=== PATIENT | female | born 1980 | race Caucasian/White ===

== ENCOUNTER 2020-04-07 07:34 | Outpatient (CLI) | payer OTHER, SELFPAY ==
--- NOTE | ~2020-04-07 | US_ITS ---
US abdomen complete EXAMINATION: US Abdomen Complete INDICATION: Trauma cytopenia PROCEDURE: Realtime High Resolution abdomen ultrasound. COMPARISON: No prior studies for comparison FINDINGS: Gallbladder within normal limits. No gallstones, pericholecystic fluid, gallbladder wall t hickening or biliary dilatation. Common bile duct measures 2.3 mm. Liver echotexture within normal limits without focal mass. Pancreas within normal limits. Pancreati c tail is obscured by bowel gas. Spleen is unremarkeable. Renal echotexture is within normal limits bilaterally without hydronephrosis, contour deforming mass or renal stone. Right kidney measures 10.8 cm. Left kidney measures 11.7 cm. Visualized aspects of the aorta and IVC are within normal limits. Portal vein is patent. No sonograph ic Carmichael's sign indicated by the technologist. IMPRESSION: 1: Normal abdominal ultrasound. Reviewed, dictated and finalized at location A.
== END 2020-04-07 07:35 | disposition home or self-care (01) ==
PROVIDERS: PCP Family Medicine; Visit Provider Internal Medicine Hematology & Oncology
DX: D69.59 Other secondary thrombocytopenia (principal)
CPT/HCPCS: 76700

== ENCOUNTER → 2022-11-20 16:29 | Outpatient (CLI) | payer OTHER, SELFPAY ==
--- NOTE | ~2022-11-20 | MM_ITS ---
EXAMINATION: MM screening anne BI w matilde HISTORY: Screening mammogram TECHNIQUE: Craniocaudal and mediolateral oblique 3-D tomosynthesis images were obtained and synthetic 2-D images were generated. CAD analysis was submitted and interpreted. COMPARISON: No prior mammogram is available for comparison at this institution. BREAST PARENCHYMAL COMPOSITION: There are scattered areas of fibroglandular density. FINDINGS: RIGHT BREAST: No suspicious mass, calcification, or architectural distortion are identified to sugges t malignancy. LEFT BREAST: An asymmetry is present in the anterior middle third of the breast in line with the nipp le axis on the mediolateral oblique view. IMPRESSION: 1. Left breast asymmetry which may represent the patient's baseline however no comparison is currentl y available. 2. Comparison with prior mammograms is necessary. BI-RADS Category 0: Incomplete: Needs comparison with prior mammograms. Reviewed, dictated and finalized at location A. IMPRESSION: 1. Left breast asymmetry which may represent the patient's baseline however no comparison is currently available. 2. Comparison with prior mammograms is necessary. BI-RADS Category 0: Incomplete: Needs comparison with prior mammograms.
== END ==
PROVIDERS: PCP Family Medicine; Visit Provider Family Medicine
DX: Z12.31 Encounter for screening mammogram for malignant neoplasm of breast (principal); R92.8 Other abnormal and inconclusive findings on diagnostic imaging of breast
CPT/HCPCS: 77063; 77067

== ENCOUNTER → 2023-01-01 09:18 | Outpatient (CLI) | payer OTHER, SELFPAY ==
--- NOTE | ~2023-01-01 | MMUS_ITS ---
EXAMINATION: MM diagnostic anne LT w matilde, US breast LT complete HISTORY: Left breast mammographic asymmetry reported in the anterior middle third of the breast in li ne with the nipple axis on mediolateral oblique view TECHNIQUE: Additional 3-D tomosynthesis images of the left breast were performed and synthetic 2-D im ages were generated. CAD analysis was submitted and interpreted. High resolution complete left breast ultrasound examination including all 4 quadrants and subareolar area was performed. COMPARISON: 11/20/2022 bilateral screening mammogram FINDINGS: MAMMOGRAPHIC FINDINGS: There is a circumscribed 6 mm opacity with 2 benign circular calcifications in the subareolar area of the left breast. No suspicious mass or shadowing, malignant calcification, skin thickening or retraction of the left b reast is evident. The asymmetry reported in the left MLO view of 11/20/2022 is consistent with composite shadowing of ov erlapping fibroglandular stroma, as there is no such finding on the ML view. The fibroglandular surinder a appears more spread out on the ML view. ULTRASOUND: Corresponding to the circumscribed mass with 2 benign-appearing calcifications on mammography is a pa rallel circumscribed hypoechoic solid mass measuring 3.2 x 7 x 7.3 mm, with 2 small echogenic foci c onsistent with the mammographically demonstrated calcifications. There is no internal vascularity or posterior shadowing. The mammographic and sonographic appearance is benign. No suspicious mass or shadowing is detected elsewhere in the left breast. IMPRESSION: 1. Benign finding 2. Routine mammographic screening is recommended BI-RADS Category 2: Benign finding(s). Reviewed, dictated and finalized at location A. IMPRESSION: 1. Benign finding 2. Routine mammographic screening is recommended BI-RADS Category 2: Benign finding(s).
== END ==
PROVIDERS: PCP Family Medicine; Visit Provider Family Medicine
DX: R92.8 Other abnormal and inconclusive findings on diagnostic imaging of breast (principal)
CPT/HCPCS: 76641; 77061; 77065; G0279

== ENCOUNTER 2023-05-05 07:44 | Day surgery (SDC) | payer OTHER, SELFPAY ==
[2023-05-04 11:03] VITALS: BMI 22.8
--- NOTE | 2023-05-05 06:49 | PM.HPGS ---
History of Present Illness History of Present Illness Consent: Risks, benefits, and alternatives have been discussed and questions answered. Patient agrees to proceed with procedure. 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 possibly a tube Review of Systems Review of Systems: All systems reviewed & are unremarkable except as noted in HPI and below Constitutional: Constitutional: Reports as per HPI ENT: Comments: serous otitis left ear PMFSH Past Medical History Medical History Anxiety Chronic serous otitis media of both ears Impacted cerumen of left ear Family History Family History Grandparent Heart disease Mother Thyroid disorder Social History Social History Social History: Caffeine-coffee Smoking status: Never smoker Alcohol intake: current Alcohol use details: wine Substance use: never Substance use type: does not use Lack of Transportation: No Lack of Food: Never True Current Housing: I Have Housing Concerned About Future Housing: No Difficulty Paying Gas/Electric Bills: No Difficulty Paying for Meds: No Currently Unemployed: No Education: High School Diploma/GED Difficulty w/ Childcare or Family Care: No Living arrangements: with family Occupation/Education: occupation 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 Gender identity (if verbalized by the patient): Female Spiritual care concerns: No Agree to blood products: Yes Meds Home Medications and Allergies Home Medications Medication Instructions Recorded Confirmed Type buspirone 10 mg tablet 10 mg PO BID 04/29/23 05/04/23 History cyclobenzaprine 5 mg tablet 5 mg PO TID PRN Breakthrough Pain, 04/29/23 05/04/23 History Moderate hydrocodone 5 mg-acetaminophen 325 1 tablet PO Q8H PRN Pain, Moderate 04/29/23 05/04/23 History mg tablet multivitamin 1 tablet PO DAILY 04/29/23 05/04/23 History biotin 1 tablet PO DAILY 05/04/23 05/04/23 History diclofenac sodium 75 mg 75 mg PO DAILY 05/04/23 05/04/23 History tablet,delayed release Allergies Allergy/AdvReac Type Severity Reaction Status Date / Time Sulfa (Sulfonamide Allergy Intermediate HIVES Verified 05/04/23 17:08 Antibiotics) metoclopramide Allergy Mild EPS Verified 05/04/23 17:08 Penicillins Allergy Mild HIVES Verified 05/04/23 17:08
--- NOTE | 2023-05-05 06:51 | PM.HPGS ---
History of Present Illness History of Present Illness Consent: Risks, benefits, and alternatives have been discussed and questions answered. Patient agrees to proceed with procedure. Chief complaint: Chronic Serous Otitis Media Narrative: Anna Spangler is a 43 year old female [facility] Past Medical History Medical History Anxiety Chronic serous otitis media of both ears Impacted cerumen of left ear Family History Family History Grandparent Heart disease Mother Thyroid disorder Social History Social History Social History: Caffeine-coffee Smoking status: Never smoker Alcohol intake: current Alcohol use details: wine Substance use: never Substance use type: does not use Lack of Transportation: No Lack of Food: Never True Current Housing: I Have Housing Concerned About Future Housing: No Difficulty Paying Gas/Electric Bills: No Difficulty Paying for Meds: No Currently Unemployed: No Education: High School Diploma/GED Difficulty w/ Childcare or Family Care: No Living arrangements: with family 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/Education: occupation 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 Gender identity (if verbalized by the patient): Female Spiritual care concerns: No Agree to blood products: Yes Comments serous otitis left ear possibly right Meds Home Medications and Allergies Home Medications Medication Instructions Recorded Confirmed Type buspirone 10 mg tablet 10 mg PO BID 04/29/23 05/04/23 History cyclobenzaprine 5 mg tablet 5 mg PO TID PRN Breakthrough Pain, 04/29/23 05/04/23 History Moderate hydrocodone 5 mg-acetaminophen 325 1 tablet PO Q8H PRN Pain, Moderate 04/29/23 05/04/23 History mg tablet multivitamin 1 tablet PO DAILY 04/29/23 05/04/23 History biotin 1 tablet PO DAILY 05/04/23 05/04/23 History diclofenac sodium 75 mg 75 mg PO DAILY 05/04/23 05/04/23 History tablet,delayed release Allergies Allergy/AdvReac Type Severity Reaction Status Date / Time Sulfa (Sulfonamide Allergy Intermediate HIVES Verified 05/04/23 17:08 Antibiotics) metoclopramide Allergy Mild EPS Verified 05/04/23 17:08 Penicillins Allergy Mild HIVES Verified 05/04/23 17:08 Exam Narrative: serous otitis left ear
--- NOTE | 2023-05-05 06:52 | WPDHPUPDATE1 ---
History and Physical Update Update Date/Time: 05/05/23 06:52 History and Physical has been reviewed, including an updated exam of the patient. There are NO changes in the patient's condition. Risks, benefits, and alternatives have been discussed and questions answered. Patient agrees to proceed with procedure.
--- NOTE | 2023-05-05 06:58 | PM.HPGS ---
History of Present Illness History of Present Illness Consent: Risks, benefits, and alternatives have been discussed and questions answered. Patient agrees to proceed with procedure. Chief complaint: Chronic Serous Otitis Media Narrative: Anna Spangler is a 43 year old female who needs a tube in her left ear for flying Review of Systems Review of Systems: All systems reviewed & are unremarkable except as noted in HPI and below PMFSH Past Medical History Medical History Anxiety Chronic serous otitis media of both ears Impacted cerumen of left ear Family History Family History Grandparent Heart disease Mother Thyroid disorder Social History Social History Social History: Caffeine-coffee Smoking status: Never smoker Alcohol intake: current Alcohol use details: wine Substance use: never Substance use type: does not use Lack of Transportation: No Lack of Food: Never True Current Housing: I Have Housing Concerned About Future Housing: No Difficulty Paying Gas/Electric Bills: No Difficulty Paying for Meds: No Currently Unemployed: No Education: High School Diploma/GED Difficulty w/ Childcare or Family Care: No Living arrangements: with family Occupation/Education: occupation 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 Gender identity (if verbalized by the patient): Female Spiritual care concerns: No Agree to blood products: Yes Comments serous otitis media Meds Home Medications and Allergies Home Medications Medication Instructions Recorded Confirmed Type buspirone 10 mg tablet 10 mg PO BID 04/29/23 05/04/23 History cyclobenzaprine 5 mg tablet 5 mg PO TID PRN Breakthrough Pain, 04/29/23 05/04/23 History Moderate hydrocodone 5 mg-acetaminophen 325 1 tablet PO Q8H PRN Pain, Moderate 04/29/23 05/04/23 History mg tablet multivitamin 1 tablet PO DAILY 04/29/23 05/04/23 History biotin 1 tablet PO DAILY 05/04/23 05/04/23 History diclofenac sodium 75 mg 75 mg PO DAILY 05/04/23 05/04/23 History tablet,delayed release Allergies Allergy/AdvReac Type Severity Reaction Status Date / Time Sulfa (Sulfonamide Allergy Intermediate HIVES Verified 05/04/23 17:08 Antibiotics) metoclopramide Allergy Mild EPS Verified 05/04/23 17:08 Penicillins Allergy Mild HIVES Verified 05/04/23 17:08 Assessment and Plan Assessment and plan (1) Chronic serous otitis media of both ears: Code(s): H65.23 - Chronic serous otitis media, bilateral Status: Acute Assessment and Plan: chronic otitis media Plan bilateral myringotomy with tubes
[2023-05-05 08:30] VITALS: BMI 23.6
[2023-05-05 08:41] VITALS: BP 114/75; PULSE 90; RESP 18; TEMP 37; O2SAT 100
--- NOTE | 2023-05-05 08:41 | P.PNAN_ITS ---
Anes - Initial Pre Proc Eval Procedure: Operation Date: 05/05/23 10:00 Proposed Procedures p Bilateral Myringotomy with Insertion of Tubes - Mickey Us MD Date/Time: 05/05/23 08:41 Surgeon: Mickey Us MD Pre Op Diagnosis: Chronic Serous Otitis Media Patient Data Age: 43 Gender: F Height: 1.55 m Weight: 56.8 kg Allergies Allergy/AdvReac Type Severity Reaction Status Date / Time Sulfa (Sulfonamide Allergy Intermediate HIVES Verified 05/04/23 17:08 Antibiotics) metoclopramide Allergy Mild EPS Verified 05/04/23 17:08 Penicillins Allergy Mild HIVES Verified 05/04/23 17:08 Home Medications Medication Instructions Recorded Confirmed Type buspirone 10 mg tablet 10 mg PO BID 04/29/23 05/05/23 History cyclobenzaprine 5 mg tablet 5 mg PO TID PRN Breakthrough Pain, 04/29/23 05/05/23 History Moderate hydrocodone 5 mg-acetaminophen 325 1 tablet PO Q8H PRN Pain, Moderate 04/29/23 05/05/23 History mg tablet multivitamin 1 tablet PO DAILY 04/29/23 05/05/23 History biotin 1 tablet PO DAILY 05/04/23 05/05/23 History diclofenac sodium 75 mg 75 mg PO DAILY 05/04/23 05/05/23 History tablet,delayed release Patient hx anesthesia problems: none Family hx anesthesia problems: none Results Review: All pre-operative results and documents have been reviewed as part of the pre- operative evaluation. [facility] Past Medical History Medical History Anxiety Chronic serous otitis media of both ears Impacted cerumen of left ear Family History Family History Grandparent Heart disease Mother Thyroid disorder Social History Social History Social History: Caffeine-coffee Smoking status: Never smoker Alcohol intake: current Alcohol use details: wine Substance use: never Substance use type: does not use Lack of Transportation: No Lack of Food: Never True Current Housing: I Have Housing Concerned About Future Housing: No Difficulty Paying Gas/Electric Bills: No Difficulty Paying for Meds: No Currently Unemployed: No Education: High School Diploma/GED Difficulty w/ Childcare or Family Care: No Living arrangements: with family Occupation/Education: occupation 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 Informed Consent: The patient's anesthetic plan and its attendant risks and benefits were discussed with the patient/family/POA. Questions were solicited and answers provided to the satisfaction of the patient/family/POA.
[2023-05-05] MEDS: LACTATED RINGERS 1,000 ML 30 ML IV CONT (08:53)
[2023-05-05] MEDS: CIPROFLOXACIN HCL 0.3% OP SOLN 2.5 ML BTL 4 DROP LEFT EAR (10:03)
[2023-05-05] MEDS: LIDOCAINE HCL 1% LOCAL INJ 10 ML VIAL INFILTRATE (10:05)
--- NOTE | 2023-05-05 10:13 | W.PM.PROC2 ---
Procedure Note - Detailed Date of Procedure 05/05/23 Pre-op Diagnosis Chronic Serous Otitis Media Post-op Diagnosis Same Procedure Performed Patient was prepped and draped per fashion general anesthesia the right ear inspected only, left ear was inspected markedly atelectatic incision was made and a T-tube was inserted with great difficulty drops placed in ear canal it is questionable how long this T-tube will last Surgeon Mickey Us MD Anesthesia General Indications serous otitis atelectatic tympanic membrane with fluid Findings atelectatic tympanic membrane with fluid Description of Procedure placement of left T-tube Estimated Blood Loss 0 Drains No Packing No Pathology None sent Complications No immediate complications Condition Stable Disposition PACU
[2023-05-05 10:17] VITALS: BP 120/86; PULSE 94; RESP 16; O2SAT 100
--- NOTE | 2023-05-05 10:20 | P.HP_ITS ---
History of Present Illness History of Present Illness Consent: Risks, benefits, and alternatives have been discussed and questions answered. Patient agrees to proceed with procedure. Chief complaint: Chronic Serous Otitis Media Narrative: Anna Spangler is a 43 year old female Review of Systems Review of Systems: All systems reviewed & are unremarkable except as noted in HPI and below PMFSH Past Medical History Medical History Anxiety Chronic serous otitis media of both ears Impacted cerumen of left ear Family History Family History Grandparent Heart disease Mother Thyroid disorder Social History Social History Social History: Caffeine-coffee Smoking status: Never smoker Alcohol intake: current Alcohol use details: wine Substance use: never Substance use type: does not use Lack of Transportation: No Lack of Food: Never True Current Housing: I Have Housing Concerned About Future Housing: No Difficulty Paying Gas/Electric Bills: No Difficulty Paying for Meds: No Currently Unemployed: No Education: High School Diploma/GED Difficulty w/ Childcare or Family Care: No Living arrangements: with family Occupation/Education: occupation 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 Gender identity (if verbalized by the patient): Female Spiritual care concerns: No Agree to blood products: Yes Meds Home Medications and Allergies Home Medications Medication Instructions Recorded Confirmed Type buspirone 10 mg tablet 10 mg PO BID 04/29/23 05/05/23 History cyclobenzaprine 5 mg tablet 5 mg PO TID PRN Breakthrough Pain, 04/29/23 05/05/23 History Moderate hydrocodone 5 mg-acetaminophen 325 1 tablet PO Q8H PRN Pain, Moderate 04/29/23 05/05/23 History mg tablet multivitamin 1 tablet PO DAILY 04/29/23 05/05/23 History biotin 1 tablet PO DAILY 05/04/23 05/05/23 History diclofenac sodium 75 mg 75 mg PO DAILY 05/04/23 05/05/23 History tablet,delayed release Allergies Allergy/AdvReac Type Severity Reaction Status Date / Time Sulfa (Sulfonamide Allergy Intermediate HIVES Verified 05/04/23 17:08 Antibiotics) metoclopramide Allergy Mild EPS Verified 05/04/23 17:08 Penicillins Allergy Mild HIVES Verified 05/04/23 17:08 Vital Signs Vital Signs - 24 hr 05/05/23 08:41 Temperature 37.0 C Pulse Rate 90 Respiratory Rate 18 Blood Pressure 114/75 Pulse Oximetry 100 Oxygen Delivery Room Air Assessment and Plan Assessment and plan (1) Chronic serous otitis media of both ears: Code(s): H65.23 - Chronic serous otitis media, bilateral Status: Acute Plan left myringotomy and T-tube
[2023-05-05 10:27] VITALS: BP 131/82; PULSE 83; RESP 18; O2SAT 100
--- NOTE | 2023-05-05 10:34 | WPDANESPN ---
Anes - Prog Note Post-Op Date/Time: 05/05/23 10:34 Cardiovascular status: normal Respiratory status: normal Airway patency: baseline Mental status: baseline Post-Op hydration status: normal Vital Signs: Last Vital Signs Temp 37.0 C 05/05/23 08:41 Pulse 83 05/05/23 10:27 Resp 18 05/05/23 10:27 BP 131/82 05/05/23 10:27 Pulse Ox 100 05/05/23 10:27 O2 Del Method Room Air 05/05/23 10:27 Pain Score (VAS): 0/10 I/O: 0/10 Patient Feedback: Patient satisfied with anesthetic care.
[2023-05-05 10:37] VITALS: BP 121/81; PULSE 81; RESP 16; O2SAT 100
[2023-05-05] MEDS: oxyCODONE HCL (*CRX) 5 MG TAB IR PO (10:46)
[2023-05-05 10:47] VITALS: BP 120/79; PULSE 86; RESP 14; O2SAT 100
== END 2023-05-05 11:07 | disposition home or self-care (01) ==
PROVIDERS: PCP Family Medicine; Visit Provider Otolaryngology
PROC: (CPT 69436; principal; 2023-05-05 10:00)
DX: H65.22 Chronic serous otitis media, left ear (principal)
CPT/HCPCS: 69436; J7342

== ENCOUNTER 2024-02-03 15:08 | Outpatient (CLI) | payer OTHER, SELFPAY ==
--- NOTE | ~2024-02-03 | MM_ITS ---
EXAMINATION: MM screening anne BI w matilde HISTORY: Screening TECHNIQUE: Craniocaudal and mediolateral oblique 3-D tomosynthesis images were obtained and synthetic 2-D images were generated. CAD analysis was submitted and interpreted. COMPARISON: Comparison to multiple prior studies sequentially, with oldest reviewed study dated 02/2021. BREAST PARENCHYMAL COMPOSITION: Dense: The breasts are heterogeneously dense, which may obscure small masses FINDINGS: There are developing asymmetries in the periareolar location of the left breast. The right breast is stable without evidence for malignancy. IMPRESSION: 1. Developing left breast asymmetries. 2. Additional mammographic views and possible breast ultrasound are recommended. BI-RADS Category 0: Incomplete: Needs additional imaging evaluation. Reviewed, dictated and finalized at location B. IMPRESSION: 1. Developing left breast asymmetries. 2. Additional mammographic views and possible breast ultrasound are recommended . BI-RADS Category 0: Incomplete: Needs additional imaging evaluation.
== END 2024-02-03 15:09 ==
PROVIDERS: PCP Physician Assistant; Visit Provider Nurse Practitioner Obstetrics & Gynecology
DX: Z12.31 Encounter for screening mammogram for malignant neoplasm of breast (principal); N64.89 Other specified disorders of breast
CPT/HCPCS: 77063; 77067

== ENCOUNTER 2024-03-01 09:54 | Outpatient (CLI) | payer OTHER, SELFPAY ==
--- NOTE | ~2024-03-01 | MMUS_ITS ---
EXAMINATION: MM diagnostic anne LT w matilde, US breast LT limited HISTORY: Follow-up left breast asymmetries TECHNIQUE: Additional 3-D tomosynthesis images of the left breast were performed and synthetic 2-D im ages were generated. CAD analysis was submitted and interpreted. High resolution Limited left breast ultrasound was performed. COMPARISON: Comparison to multiple prior studies sequentially, with oldest reviewed study dated 02/2021. BREAST PARENCHYMAL COMPOSITION: Dense: The breasts are heterogeneously dense, which may obscure small masses FINDINGS: MAMMOGRAPHIC FINDINGS: No discrete mass or architectural distortion are identified. There are benign subareolar calcificatio ns of the left breast. ULTRASOUND: Limited left breast ultrasound: At 12:00, near the nipple there is an oval hypoechoic mass measuring 6 mm, unchanged from prior examination. There is internal echogenic foci, likely calcifications. Ther e is parallel orientation, no internal vascularity and posterior shadowing, similar. At 3:00 near the nipple there is a 7 mm cyst. IMPRESSION: 1. No new masses, calcifications or architectural distortion. There are benign findings. 2. Routine yearly screening mammogram and regular clinical breast examination are recommended. BI-RADS Category 2: Benign finding(s). Reviewed, dictated and finalized at location B. IMPRESSION: 1. No new masses, calcifications or architectural distortion. There are benign findings. 2. Routine yearly screening mammogram and regular clinical breast examination a re recommended. BI-RADS Category 2: Benign finding(s).
== END 2024-03-01 09:55 ==
LOC: MICIMG 09:55
PROVIDERS: PCP Physician Assistant; Visit Provider Nurse Practitioner
DX: N63.20 Unspecified lump in the left breast, unspecified quadrant (principal)
CPT/HCPCS: 76642; 77061; 77065; G0279

== ENCOUNTER 2024-03-01 10:34 | Outpatient (CLI) | payer OTHER, SELFPAY ==
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
== END 2024-03-01 10:35 ==
LOC: MICIMG 10:36
PROVIDERS: PCP Physician Assistant; Visit Provider Physician Assistant
DX: M54.50 Low back pain, unspecified (principal)
CPT/HCPCS: 72100

== ENCOUNTER 2024-06-23 12:55 | Outpatient (CLI) | payer OTHER, SELFPAY ==
--- NOTE | ~2024-06-23 | MR_ITS ---
MRI of the lumbar spine Clinical History: Pain Technique: Axial T2-weighted images, and sagittal T1-weighted, T2-weighted, and and T2 fat-sat images were acquired. Findings: There is no fracture or subluxation of the lumbar spine. Vertebral bodies maintain normal h eight and alignment. No bone marrow signal abnormality seen. At L1-L2, L2-L3, L3-L4, the intervertebral discs maintain normal signal and position. No disc bulge o r herniation at these levels. No spinal canal stenosis. At L4-L5, there is mild disc desiccation with tiny annular fissure and tiny bulge. There is advanced facet arthropathy. No central canal stenosis. There is mild to moderate left neural foraminal narrowi ng. Right neural foramen preserved. At L5-S1, there is mild distal scaphoid with minimal bulge and moderate facet arthropathy. No central canal stenosis. Neural foramina are preserved. Paravertebral soft tissues are unremarkable. Impression: Mild degenerative spondylosis, as above, worst at L4-L5. Reviewed, dictated and finalized at [facility]. [employer] Impression: Mild degenerative spondylosis, as above, worst at L4-L5.
== END 2024-06-23 12:56 | disposition home or self-care (01) ==
PROVIDERS: PCP Physician Assistant; Visit Provider Physician Assistant
DX: M47.896 Other spondylosis, lumbar region (principal)
CPT/HCPCS: 72148

== ENCOUNTER 2024-08-29 14:04 | Outpatient (CLI) | payer OTHER, SELFPAY ==
--- NOTE | ~2024-08-29 | XR_ITS ---
EXAMINATION: XR hip LT 2V w AP pelvis DATE: 08/29/2024 14:18 INDICATION: Left hip pain. TECHNIQUE: An anteroposterior view of the pelvis and 2 views of left hip were obtained. COMPARISON: None. FINDINGS: Alignment is normal. No fracture. There is mild osteoarthritis of the hips. There is mild l umbar spondylosis. IMPRESSION: 1. Mild osteoarthritis of the hips. Reviewed, dictated and finalized at location A. [employer] PROFESS[employer]
== END 2024-08-29 14:05 | disposition home or self-care (01) ==
LOC: MICIMG 14:06
PROVIDERS: PCP Physician Assistant; Visit Provider Physician Assistant
DX: M16.0 Bilateral primary osteoarthritis of hip (principal)
CPT/HCPCS: 73502

== ENCOUNTER 2025-01-10 13:06 | Outpatient (CLI) | payer OTHER, SELFPAY ==
--- OUTSIDE RECORDS SUMMARY | 2025-01-10 13:12 | XMS_ITS | Data Portability ---
Author Organization [place] [facility], Main Office Address [address] [place] [address] Assessment No assessment recorded. Plan of Treatment Reminders Order Date Submit Date Provider Last Modified By Organization Details Last Modified Time Details Appointments Any 30 2024 02:30P PRASANNA Sheldon Not available Not available Not available Lab amylase , serum or plasma 2023 024 [email or web address] [facility] Rachel LENZ, [address]do[address], [place], [address], 05/15/2024 08:51:00 lipase, serum or plasma 2023 024 [email or web address] [facility] Rachel LENZ, [address]do[address]ez, [place], [address], 05/15/2024 08:51:01 CMP, serum or plasma 2023 024 [email or web address] [facility] Rachel LENZ, [address]do[address]ez, [place], [address], 05/15/2024 08:51:01 vitamin D, 25-hydr oxy, total, serum 2023 024 [email or web address] [facility] Rachel LENZ, Tasneem Ordoeñz, [place], [address], 05/15/2024 08:51:00 vitamin B12 + folate, serum or blood 2023 024 [email or web address] [facility] Rachel LENZ, [place], [address], 05/15/2024 08:51:00 CBC w/ auto diff 2023 024 [email or web address] [facility], [address], [place], [address], 10/04/2023 09:41:17 vitamin B12 + folate, serum or blood 2023 024 [place] [address] [facility], [address], [place], [address], 10/04/2023 09:41:17 vitamin D, 25-hydr oxy, total, serum 2023 024 [place] [address] [facility], [address], [place], [address], 10/04/2023 09:41:17 magnesi um, serum or plasma 2023 024 [place] [address] [employer] [facility], [address], [place], [address], 10/04/2023 09:41:17 Referral pain managem ent referra l - spondyl osis , bulging discs , conside r epidura ls? Please call patient to kenzie clements appoint ment. Thank you 2024 025 [email or web address] [facility], [address], [place], [address], 09/05/2024 08:50:28 Procedures None recorde d. Surgeries None recorde d. 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 2023 024 [facility], [address], [address] [address], [place], [address], 06/23/2024 15:32:22 Medication Orders fluniso lide 25 mcg (0.025 %) nasal spray 2024 025 [email or web address] 00 [facility] #3259, [address] [place], [address], 11/03/2024 12:10:46 fluoxet ine 10 mg capsule 2024 025 [email or web address] [address] [place], [address], 11/03/2024 12:10:47 methylp henidat e ER 30 mg capsule ,extend ed release (40-60) sprinkl e 2024 025 [facility] [address] [place], [address], 11/03/2024 12:13:57 cyclobe nzaprin e 10 mg tablet 2024 025 [facility] [address] [place] [address], [address], 08/08/2024 14:37:51 bupropi on HCl XL 150 mg 24 hr tablet, extende d release 2024 025 [email or web address] [facility]/Pharmacy #3259, [address] [place], [address], 11/03/2024 11:36:08 fluoxet ine 10 mg capsule 2024 025 [facility] [address] [place], [address], 08/08/2024 14:45:33 bupropi on HCl XL 300 mg 24 hr tablet, extende d release 2023 024 [email or web address] [facility]armacy #3259, [address] [place], [address], 11/03/2024 11:36:04 sertral ine 100 mg tablet 2023 024 [email or web address] [facility] #3259, [address] [place], [address], 05/08/2024 14:08:30 buspiro ne 10 mg tablet 2023 024 [facility] [address] [place], [address], 12/23/2023 15:42:26 hydroco done 5 mg-acet aminoph en 325 mg tablet 2023 024 [facility] [address] [place], [address], 09/20/2023 14:36:24 ibuprof en 600 mg tablet 2023 024 [email or web address] 00 [facility] #3259, [address] [place] [address], [address], 09/20/2023 14:35:35 Patient TargetsNo targets recorded. Patient Instructions Encounter Date Encounter Id Patient Instructions Last Modified By Organization Details Last Modified Time 09/20/2023 [id number] advised an otc tennis elbow brace [email or web address] Not available 09/20/2023 14:28:39 12/23/2023 [id number] no si/hi ; good insight [email or web address] Not available 01/08/2024 09:50:19 Reason for Referral Pain Management Referral for Prolapsed lumbar intervertebral disc spondylosis , bulging discs , consider epidurals? Please call patient to schedule an appointment. Thank you Referring Physician: Constantin Kearney, Family Medicine, Encounter Date: 08/08/2024 Results Created Date Observation Date Name Description Value Unit Range Abnormal Flag Note LastModifiedBy Organization Detail LastModifiedTime 10/21/19 24 10/22/2023 MAGNE SIUM magnesium 2.2 mg/dL 1.5-2. 5 normal Not Available [address], [address], 10/22/2023 09:47:22 10/21/19 24 10/22/2023 CBC (INCL UDES DIFF/ PLT) white blood cell count 8.0 thous and/u L 3.8-10 .8 normal Not Available [address], [address], 10/22/2023 09:47:24 10/21/19 24 10/22/2023 CBC (INCL UDES DIFF/ PLT) red blood cell count 3.99 marii on/uL 3.80-5 .10 normal Not Available [address], [address], 10/22/2023 09:47:24 10/21/19 24 10/22/2023 CBC (INCL UDES DIFF/ PLT) hemoglobin 12.1 g/dL 11.7-1 5.5 normal Not Available [address], [address], 10/22/2023 09:47:24 10/21/19 24 10/22/2023 CBC (INCL UDES DIFF/ PLT) hematocrit 37.2 % 35.0-4 5.0 normal Not Available [address], [address], 10/22/2023 09:47:24 10/21/19 24 10/22/2023 CBC (INCL UDES DIFF/ PLT) MCV 93.2 fL 80.0-1 00.0 normal Not Available [address], [address], 10/22/2023 09:47:24 10/21/19 24 10/22/2023 CBC (INCL UDES DIFF/ PLT) MCH 30.3 pg 27.0-3 3.0 normal Not Available [address], [address], 10/22/2023 09:47:24 10/21/19 24 10/22/2023 CBC (INCL UDES DIFF/ PLT) MCHC 32.5 g/dL 32.0-3 6.0 normal Not Available [address], [address], 10/22/2023 09:47:24 10/21/19 24 10/22/2023 CBC (INCL UDES DIFF/ PLT) RDW 12.5 % 11.0-1 5.0 normal Not Available [address], [address], 10/22/2023 09:47:24 10/21/19 24 10/22/2023 CBC (INCL UDES DIFF/ PLT) platelet count 161 thous and/u L 140-40 0 normal Not Available [address], [address], 10/22/2023 09:47:24 10/21/19 24 10/22/2023 CBC (INCL UDES DIFF/ PLT) MPV 12.0 fL 7.5-12 .5 normal Not Available [address], [address], 10/22/2023 09:47:24 10/21/19 24 10/22/2023 CBC (INCL UDES DIFF/ PLT) absolute neutrophils 5080 cells /uL 1500-7 800 normal Not Available [address], [address], 10/22/2023 09:47:24 10/21/19 24 10/22/2023 CBC (INCL UDES DIFF/ PLT) absolute lymphocytes 2296 cells /uL 850-39 00 normal Not Available [facility] [address], [address], 10/22/2023 09:47:24 10/21/19 24 10/22/2023 CBC (INCL UDES DIFF/ PLT) absolute monocytes 512 cells /uL 200-95 0 normal Not Available [facility] [address], [address], 10/22/2023 09:47:24 10/21/19 24 10/22/2023 CBC (INCL UDES DIFF/ PLT) absolute eosinophils 40 cells /uL 15-500 normal Not Available [facility] [address], [address], 10/22/2023 09:47:24 10/21/19 24 10/22/2023 CBC (INCL UDES DIFF/ PLT) absolute basophils 72 cells /uL 0-200 normal Not Available [facility] [address], [address], 10/22/2023 09:47:24 10/21/19 24 10/22/2023 CBC (INCL UDES DIFF/ PLT) neutrophils 63.5 % normal Not Available [facility] [address], [address], 10/22/2023 09:47:24 10/21/19 24 10/22/2023 CBC (INCL UDES DIFF/ PLT) lymphocytes 28.7 % normal Not Available [facility] [address], [address], 10/22/2023 09:47:24 10/21/19 24 10/22/2023 CBC (INCL UDES DIFF/ PLT) monocytes 6.4 % normal Not Available [facility] [address], [address], 10/22/2023 09:47:24 10/21/19 24 10/22/2023 CBC (INCL UDES DIFF/ PLT) eosinophils 0.5 % normal Not Available [facility] [address] [place], [address], 10/22/2023 09:47:24 10/21/1910/22/2023 CBC (INCL UDES DIFF/ PLT) basophils 0.9 % normal Not Available [address] [place], [address], 10/22/2023 09:47:24 10/21/1910/22/2023 VITAM IN B12/F OLATE , SERUM PANEL vitamin B12 431 pg/mL 200-11 00 normal Not Available [address] [place], [address], 10/22/2023 09:47:25 10/21/1910/22/2023 VITAM IN B12/F OLATE , SERUM PANEL folate, serum 9.6 NG/mL normal Refer ence Range Low: <3.4 Borde rline : 3.4-5 .4 Tricia l: >5.4 Not Available [address], [address], 10/22/2023 09:47:25 10/21/1910/22/2023 VITAM IN D,25- OH,TO MATTHEW,I A vitamin D,25-oh,tota l,ia 20 NG/mL 30-100 low Vitam in D Statu s 25-OH Vitam in D: Defic iency : <20 ng/mL Insuf ficie ncy: 20 - 29 ng/mL Optim al: > or = 30 ng/mL For 25-OH Vitam in D testi ng on patie nts on D2-robledo pplem entat ion and patie nts for whom quant itati on of D2 and D3 fract ions is requi red, the [facility] Ass[facility] eD(TM ) 25-OH VIT D, (D2,D 3), LC/MS /MS is recom juliette d: order code 20835 (heri ents >2yrs ). See Note 1 Note 1 For addit ional infor erick butler e refer to http: //edu catio n.Que stDia gnost ics.c om/fa q/FAQ 199 (This link is being provi ded for infor vita arias/ lynn mckeon purpo ses only. ) Not Available [address], [address], 10/22/2023 09:47:26 05/17/20 24 05/18/2024 COMPR EHENS LONG METAB OLIC PANEL glucose 76 mg/dL 65-99 normal Unspu n or parti ally spun tube recei elise. The manuf actur er instr uctio ns indic ate that the serum /plas ma shoul d be separ ated from the red cells by centr ifuga tion as soon as possi ble after clott ing. Expos ure to red cells may impac t the resul ts. Clini kesha corre latio n is advis ed and if warra nted, a new speci men shoul d be submi tted. Pleamparo e agustina w test requi remen ts at testd irect ory.q uestd iagno [employer] .com. Fasti ng refer ence inter summer Not Available [address] [address] [place], [address], 05/18/2024 03:32:41 05/17/20 24 05/18/2024 COMPR EHENS LONG METAB OLIC PANEL urea nitrogen (BUN) 19 mg/dL 7-25 normal Not Available [address], [address], 05/18/2024 03:32:41 05/17/20 24 05/18/2024 COMPR EHENS LONG METAB OLIC PANEL creatinine 0.77 mg/dL 0.50-0 .99 normal Not Available [address], [address], 05/18/2024 03:32:41 05/17/20 24 05/18/2024 COMPR EHENS LONG METAB OLIC PANEL eGFR 97 mL/mi n/1.7 3m2 > or = 60 normal Not Available [address] [address] [place], [address], 05/18/2024 03:32:41 05/17/20 24 05/18/2024 COMPR EHENS LNOG METAB OLIC PANEL BUN/creatini ne ratio SEE NOTE: (calc ) 6-22 Not Repor kris: BUN and Creat inine are withi n refer ence range . Not Available [address], [address], 05/18/2024 03:32:41 05/17/20 24 05/18/2024 COMPR EHENS LONG METAB OLIC PANEL sodium 138 mmol/ L 135-14 6 normal Not Available [address], [address], 05/18/2024 03:32:41 05/17/20 24 05/18/2024 COMPR EHENS LONG METAB OLIC PANEL potassium 4.8 mmol/ L 3.5-5. 3 normal Not Available [address] [address] [place], [address], 05/18/2024 03:32:41 05/17/20 24 05/18/2024 COMPR EHENS LONG METAB OLIC PANEL chloride 104 mmol/ L 98-110 normal Not Available [address] [address] [place], [address], 05/18/2024 03:32:41 05/17/20 24 05/18/2024 COMPR EHENS LONG METAB OLIC PANEL carbon dioxide 27 mmol/ L 20-32 normal Not Available [address] [address] [place], [address], 05/18/2024 03:32:41 05/17/20 24 05/18/2024 COMPR EHENS LONG METAB OLIC PANEL calcium 9.4 mg/dL 8.6-10 .2 normal Not Available [address] [address] [place], [address], 05/18/2024 03:32:41 05/17/20 24 05/18/2024 COMPR EHENS LONG METAB OLIC PANEL protein, total 6.9 g/dL 6.1-8. 1 normal Not Available [address], [address], 05/18/2024 03:32:41 05/17/20 24 05/18/2024 COMPR EHENS LONG METAB OLIC PANEL albumin 4.8 g/dL 3.6-5. 1 normal Not Available [address], [address], 05/18/2024 03:32:41 05/17/20 24 05/18/2024 COMPR EHENS LONG METAB OLIC PANEL globulin 2.1 g/dL_ (calc ) 1.9-3. 7 normal Not Available [address], [address], 05/18/2024 03:32:41 05/17/20 24 05/18/2024 COMPR EHENS LONG METAB OLIC PANEL albumin/glob ulin ratio 2.3 (calc ) 1.0-2. 5 normal Not Available [address], [address], 05/18/2024 03:32:41 05/17/20 24 05/18/2024 COMPR EHENS LONG METAB OLIC PANEL bilirubin, total 0.5 mg/dL 0.2-1. 2 normal Not Available [address], [address], 05/18/2024 03:32:41 05/17/20 24 05/18/2024 COMPR EHENS LONG METAB OLIC PANEL alkaline phosphatase 36 U/L 31-125 normal Not Available [address], [address], 05/18/2024 03:32:41 05/17/20 24 05/18/2024 COMPR EHENS LONG METAB OLIC PANEL AST 16 U/L 10-30 normal Not Available [address] [address] [place], [address], 05/18/2024 03:32:41 05/17/20 24 05/18/2024 COMPR EHENS LONG METAB OLIC PANEL ALT 12 U/L 6-29 normal Not Available [address] [place], [address], 05/18/2024 03:32:41 05/17/20 24 05/18/2024 VITAM IN B12/F OLATE , SERUM PANEL vitamin B12 495 pg/mL 200-11 00 normal Not Available [address], [address], 05/18/2024 03:32:44 05/17/20 24 05/18/2024 VITAM IN B12/F OLATE , SERUM PANEL folate, serum 16.6 NG/mL normal Refer ence Range Low: <3.4 Borde rline : 3.4-5 .4 Tricia l: >5.4 Not Available [address], [address], 05/18/2024 03:32:44 05/17/20 24 05/18/2024 VITAM IN D,25- OH,TO MATTHEW,I A vitamin D,25-oh,tota l,ia 43 NG/mL 30-100 normal Vitam in D Statu s 25-OH Vitam in D: Defic iency : <20 ng/mL Insuf ficie ncy: 20 - 29 ng/mL Optim al: > or = 30 ng/mL For 25-OH Vitam in D testi ng on patie nts on D2-robledo pplem entat ion and patie nts for whom quant itati on of D2 and D3 fract ions is requi red, the [facility] Assur eD(TM ) 25-OH VIT D, (D2,D 3), LC/MS /MS is recom juliette d: order code 15240 (heri ents >2yrs ). See Note 1 Note 1 For addit ional infor erick butler refer to http: //[facility] yesi Bautistaia gnost ics.c om/fa q/FAQ 199 (This link is being provi ded for infor vita arias/ lynn mckeon purpo ses only. ) Not Available [facility] [address] [address] [place], [address], 05/18/2024 03:32:45 05/17/20 24 05/18/2024 AMYLA SE amylase 51 U/L 21-101 normal Not Available [facility] [address] [address] [place], [address], 05/18/2024 03:32:46 05/17/20 24 05/18/2024 LIPAS E lipase 26 U/L 7-60 normal Not Available [facility] [address] [address] [place], [address], 05/18/2024 03:32:46 02/04/20 24 02/03/2024 MAMMO , scree delon, digit al, bilat eral No observ ation record ed. [email or web address] [facility] [address], [place], [address], 02/08/2024 09:25:06 03/02/20 24 03/01/2024 MAMMO , diagn ostic , digit al, bilat eral No observ ation record ed. [email or web address] [facility] [address], [place], [address], 03/07/2024 12:39:22 03/15/20 24 03/01/2024 XR, lumbo sacra l spine , 2 or 3 view No observ ation record ed. [email or web address] [facility] [address], [place], [address], 05/08/2024 14:30:05 06/23/20 24 06/23/2024 MRI, lumba r spine , w/o contr ast No observ ation record ed. [email or web address] [facility] [address], [place], [address], 07/11/2024 16:29:15 08/29/19 25 08/29/2024 XR, hip + pelvi s, unila teral , 2 or 3 view No observ ation record ed. [email or web address] [facility] [address], [place], [address], 08/30/2024 16:54:01 Result Notes None recorded. Problems Name Problem SNOMED Code Status Onset Date Resolution Date Notes Provider Name and Address Organization Details Recorded Time Capsuliti s of metatarso phalangea l joint of right foot 786262587135 22698 Active 2020 Not Available [facility] 3 02:38:14 Backache 148324117 Active 2019 Not Available [facility] 3 02:38:15 Pain in right foot 035475505183 107 Active 2020 Not Available [facility] 3 02:38:15 Bunion 246906223 Active 2020 Not Available [facility] 3 02:38:15 Anxiety 66124431 Active 2019 Not Available [facility] 3 02:38:15 Low back pain 224429970 Active 2022 Christianne Alex MD [address], [facility] [address], [place], [address] , [facility] [employer] [facility] 3 14:40:28 Chronic low back pain 780338991 Active 2022 Christianne Alex MD [address], [facility] [address], [place], [address] , [facility] [employer] [facility] 3 14:42:38 Mammograp hy abnormal 693352614 Active 2022 MIKE Trotter null, [facility] [employer] [facility] 3 10:50:16 Acute left otitis media 109508589 Active 2022 Christianne Alex MD [address], [address], [place], [address] , [employer] 3 10:30:00 Serous otitis media 35551008 Active 2022 Christianne Alex MD [address], [address], [place], [address] , [employer] 3 10:31:33 Acute right otitis media 346677874 Active 2022 Christianne Alex MD [address], [address], [place], [address] , [employer] 3 08:31:21 At increased risk of nutrition al deficit 828004680 Active 2023 CIERA Posadas [address], [address], [place], [address] , [employer] 4 14:17:56 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 2023 CIERA Posadas [address], [address], [place], [address] , [employer] 4 14:20:04 Medial epicondyl itis of right elbow joint 459191037230 109 Active 2023 CIERA Posadas [address], [address], [place], [address] , [employer] 4 14:24:13 Muscle strain 35350459 Active 2023 luq lateral CIERA Posadas [address], [address], [place], [address] , [employer] 4 14:29:27 Vitamin D below reference range 840109960 Active 2023 CIERA Posadas [address], [address], [place], [address] , [employer] 4 10:23:26 Menorrhag ia 370401550 Active 2023 CIERA Posadas [address], [address], [place], [address] , [employer] 4 15:45:32 Depressiv e disorder 67648039 Active 2023 CIERA Posadas [address], [address], [place], [address] , [employer] 4 14:38:06 Attention deficit hyperacti vity disorder, predomina ntly inattenti ve type 24608026 Active 2023 CIERA Posadas [address], [address], [place], [address] , [employer] 4 14:48:02 Abdominal pain 24753415 Active 2023 CIERA Posadas [address], [address], [place], [address] , [employer] 4 14:56:40 Sinusitis 01481603 Active 2023 CIERA Posadas [address], [address], [place], [address] , [employer] 4 17:12:54 Pain of hip region 05339915 Active 2024 CIERA Posadas [address], [address], [place], [address] , [employer] 5 14:48:15 Spondylos is 5132994 Active 2024 CIERA Posadas [address], [address], [place], [address] , [employer] 5 14:51:30 Prolapsed lumbar intervert ebral disc 148345829 Active 2024 CIERA Posadas [address], [address], [place], [address] , [employer] 5 14:52:07 Premenstr ual tension syndrome 23204883 Active 2024 CIERA Posadas [address] [facility], [address], [place], [address] , [employer] 5 11:58:43 Allergic rhinitis 33181923 Active 2024 CIERA Posadas [address] [facility], [address], [place], [address] , [employer] [facility] 5 12:05:00 Acute folliculi tis 972295825 Active 2024 CIERA Posadas [address] [facility], [address], [place], [address] , [employer] 5 14:32:53 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 Procedures Surgical History Date Name Laterality Status Provider Name and Address Organization Details Recorded Time 3 Most Recent Mammogram completed Sakina Peterson RN [facility] [employer] 06/16/2023 14:23:01 Sinus Surgery completed Sakina Peterson RN [facility] [employer] 06/16/2023 14:21:38 tonsilectomy/a denoids completed Sakina Peterson RN [facility] [employer] 06/16/2023 14:21:51 Imaging Results None recorded. Procedure Notes None recorded. Medical Equipment None Reported. Allergies Allergen ID Allergen Name Allergen Category Reaction Reaction Severity Criticality Documentation Date Start Date Code Code System Note Provider Name and Address Organization Details Recorded Time 3791 Substance with sulfonami de structure and antibacte rial mechanism of action (substanc e) medicatio n Not available Not available Not available 09/09/2022 12941 8003 SNOMED Not Available [facility] 3 02:49:05 3792 Reglan medicatio n Not available Not available Not available 09/09/2022 9230 RxNorm Not Available [facility] 3 02:49:05 3793 amoxicill in medicatio n Not available Not available Not available 09/09/2022 723 RxNorm Not Available [facility] 3 02:49:05 Medications Name Sig Start Date Stop Date Status Note LastModified by Organization Details LastModified Time cyclobenz aprine 10 mg tablet TAKE 1 TABLET BY MOUTH EVERY DAY AT BEDTIME NEEDED FOR 30 DAYS active Not Available Not Available No t Available buspirone 5 mg tablet TAKE 1 TABLET BY MOUTH TWICE A DAY 12/22 completed Not Available Not Available Not Available trazodone 50 mg tablet TAKE 1 TABLET BY MOUTH EVERYDAY AT BEDTIME active Not Available Not Available No t Available azithromy ania 250 mg tablet TAKE 2 TABLETS BY MOUTH TODAY, THEN TAKE 1 TABLET DAILY FOR 4 DAYS DIRECTED 05/08 completed Not Available Not Available Not Available hydrocodo ne 5 mg-acetam inophen 325 mg tablet TAKE 1 TABLET BY MOUTH THREE TIMES A DAY NEEDED active Not Available Not Available No t Available prednison e 20 mg tablet Take 2 tabs PO twice daily for 2 days; 1 tab PO twice daily for 5 days; 1/2 tab PO twice daily for 2 days; 1/2 tab PO once for 1 day. TAKE 2ND DOSE EVERYDAY AT NOON-10 DAY COURSE 11/03 completed Not Available Not Available Not Available sertralin e 100 mg tablet TAKE 1 TABLET BY MOUTH EVERY DAY FOR 7 DAYS AROUND MENSTRUA L CYCLE active not helping Not Available Not Available Not Available methylphe nidate ER 10 mg tablet,ex tended release TAKE 1 TABLET BY MOUTH EVERY DAY FOR 14 DAYS 09/14 completed Not Available Not Available Not Available acetamino phen 300 mg-codein e 30 mg tablet TAKE 1 TABLET BY MOUTH EVERY 3-4 HOURS NEEDED - CAUTION SEDATION 09/23 completed Not Available Not Available Not Available ciproflox acin 500 mg tablet TAKE 1 TABLET BY MOUTH EVERY 12 HOURS FOR 10 DAYS active Not Available Not Available No t Available meloxicam 7.5 mg tablet TAKE 1 TABLET BY MOUTH EVERY DAY NEEDED active Not Available Not Available No t Available alprazola m 0.25 mg tablet TAKE 1 TABLET BY MOUTH THREE TIMES A DAY NEEDED 06/16 completed Not Available Not Available Not Available methocarb val 750 mg tablet TAKE 1 TABLET BY MOUTH THREE TIMES A DAY NEEDED 04/30 completed Not Available Not Available Not Available baclofen 10 mg tablet TAKE 1 TABLET BY MOUTH EVERY 6 HOURS NEEDED active Not Available Not Available No t Available flunisoli de 25 mcg (0.025 %) nasal spray SPRAY 2 SPRAYS BY INTRANAS AL ROUTE TWICE A DAY FOR 30 DAYS active Not Available Not Available No t Available buspirone 10 mg tablet TAKE 2 TABLETS BY MOUTH TWICE A DAY active not helping Not Available Not Available Not Available methylphe nidate ER 20 mg tablet,ex tended release TAKE 1 TABLET BY MOUTH EVERY DAY IN THE MORNING active Not Available Not Available No t Available fluoxetin e 10 mg capsule Take 1 capsule every day by oral route in the morning for 30 days. 2024 active Not Available Not Available Not Avai lable mometason e 50 mcg/actua tion nasal spray active Not Available Not Available Not Available gabapenti n 300 mg capsule TAKE 1 CAPSULE BY MOUTH AT BEDTIME 06/16 completed Not Available Not Available Not Available diclofena c sodium 75 mg tablet,de layed release TAKE 1 TABLET BY MOUTH TWICE A DAY 12/22 completed Not Available Not Available Not Available gabapenti n 100 mg capsule TAKE 1 CAPSULE BY MOUTH TWICE A DAY 06/16 completed Not Available Not Available Not Available ibuprofen 600 mg tablet TAKE 1 TABLET BY MOUTH THREE TIMES A DAY WITH FOOD FOR 30 DAYS active Not Available Not Available No t Available methylpre dnisolone 4 mg tablets in a dose pack Use as directed 06/16 completed Not Available Not Available Not Available arnica 20 % topical tincture active Not Available Not Available Not Available doxycycli ne hyclate 100 mg tablet Take 1 tablet twice a day by oral route. 06/16 completed Not Available Not Available Not Available buspirone 15 mg tablet TAKE 1 TABLET TWICE A DAY BY MOUTH AFTER MEAL(S) FOR 30 DAYS. 05/08 completed Not Available Not Available Not Available moxifloxa ania 0.5 % eye drops INSTILL 1 DROP INTO LEFT EYE 4 TIMES A DAY 05/08 completed Not Available Not Available Not Available bupropion HCl XL 300 mg 24 hr tablet, extended release TAKE 1 TABLET BY MOUTH EVERY DAY IN THE MORNING active Not Available Not Available No t Available bupropion HCl XL 150 mg 24 hr tablet, extended release TAKE 1 TAB BY MOUTH EVERY MORNING X7 DAYS, 1 TAB EVERY OTHER DAY X7 DAYS, THEN 1 EVERY 3RD DAY 11/03 completed Not Available Not Available Not Available escitalop julio césar 5 mg tablet Take 1 tablet every day by oral route. 09/23 completed Not Available Not Available Not Available biotin active Not Available Not Availa ble Not Available multivita min active Not Available Not Available Not Available PNV-DHA 27 mg iron-1 mg-300 mg capsule 01/09 completed Not Available Not Available Not Available Sacha-C DHA 35 mg-1 mg-200 mg capsule 01/09 completed Not Available Not Available Not Available Vitamin D3 50 mcg (2,000 unit) capsule Take 1 capsule every day by oral route with meal(s) for 30 days, for low vit d. 2023 active Not Available Not Available Not Avai lable methylphe nidate ER 40 mg capsule,e xtended release (40-60) sprinkle Take 1 capsule every day by oral route in the morning for 30 days. 2024 active Not Available Not Available Not Avai lable methylphe nidate ER 30 mg capsule,e xtended release (40-60) sprinkle TAKE 1 CAPSULE BY MOUTH EVERY DAY active Not Available Not Available No t Available Trintelli x 5 mg tablet Take 1 tablet every day by oral route. 04/09 completed Not Available Not Available Not Available Trintelli x 10 mg tablet Take 1 tablet every day by oral route. 04/09 completed Not Available Not Available Not Available Fluzone Quad (PF) 60 mcg (15 mcg x 4)/0.5 mL IM syringe active Not Available Not Available Not Available Fluzone Quad (PF) 60 mcg (15 mcg x 4)/0.5 mL IM syringe PHARMACY ADMINIST ERED active Not Available Not Available No t Available Vitals Date Recorded Body height Body mass index (BMI) Body weight Body temperature Heart rate Oxygen saturation Oxygen saturation in Arterial blood by Pulse oximetry Systolic blood pressure Diastolic blood pressure Provider Name and Address Organization Details Last Updated DateTime 5 157.48 cm 23.2 kg/m2 83134.2 3 g 98 [degF] 108 /min 99 % 99 % 122 mm[Hg] 80 mm[Hg] Maribell Pantoja CMA [place] [facility] [employer] 5 14:18:42 Date Recorded Body height Body mass index (BMI) Body weight Oxygen saturation Oxygen saturation in Arterial blood by Pulse oximetry Body temperature Heart rate Respiratory rate Systolic blood pressure Diastolic blood pressure Provider Name and Address Organization Details Last Updated DateTime 4 157.48 cm 22.1 kg/m2 28622.6 8 g 98 % 98 % 98.2 [degF] 106 /min 16 /min 142 mm[Hg] 86 mm[Hg] Sakina Peterson RN [facility] [employer] [facility] 4 14:03:52 Date Recorded Body height Body mass index (BMI) Body weight Body temperature Heart rate Oxygen saturation Oxygen saturation in Arterial blood by Pulse oximetry Systolic blood pressure Diastolic blood pressure Provider Name and Address Organization Details Last Updated DateTime 5 157.48 cm 22.7 kg/m2 48770.4 5 g 97.7 [degF] 91 /min 98 % 98 % 130 mm[Hg] 78 mm[Hg] Maru Vega Jan [facility] [employer] [facility] 5 11:40:57 Date Recorded Body height Body mass index (BMI) Body weight Body temperature Heart rate Oxygen saturation Oxygen saturation in Arterial blood by Pulse oximetry Respiratory rate Systolic blood pressure Diastolic blood pressure Provider Name and Address Organization Details Last Updated DateTime 4 157.48 cm 21.4 kg/m2 20673.3 1 g 98.1 [degF] 113 /min 96 % 96 % 16 /min 112 mm[Hg] 72 mm[Hg] Vickie Meadows RN [facility] [employer] [facility] 4 15:24:11 Date Recorded Body height Body mass index (BMI) Body weight Body temperature Heart rate Oxygen saturation Oxygen saturation in Arterial blood by Pulse oximetry Systolic blood pressure Diastolic blood pressure Provider Name and Address Organization Details Last Updated DateTime 4 157.48 cm 23.6 kg/m2 05306.4 2 g 98.5 [degF] 115 /min 96 % 96 % 112 mm[Hg] 78 mm[Hg] Vickie Meadows RN [facility] [employer] [facility] 4 14:11:36 Social History Question Answer Notes LastModified by Organizat ion Details LastModified Time Tobacco Smoking Status Never Smoker Not Available [employer] 09/09/2022 02:27:27 What Is Your Level Of Caffeine Consumption? Heavy [email or web address] Information not available 06/16/2023 What Type Of Diet Are You Following? REGULAR [email or web address] Information not available 06/16/2023 What Is The Highest Grade Or Level Of School You Have Completed Or The Highest Degree You Have Received? [id number] [email or web address] Information not available 06/16/2023 Have There Been Any Changes To Your Family Or Social Situation? No [email or web address] Information no t available 06/16/2023 Do You Use Insect Repellent Routinely? Yes [email or web address] Information not available 06/16/2023 Do You Have Any Pets? No [email or web address] Information not available 06/16/2023 What Is Your Relationship Status? [email or web address] Information not available 06/16/2023 Do You Have Smoke And Carbon Monoxide Detectors In Your Home? Yes [email or web address] Information not available 06/16/2023 Are You Passively Exposed To Smoke? No [email or web address] Information no t available 06/16/2023 Are There Any Smokers In Your House? No [email or web address] Information not available 06/16/2023 Do You Use Sunscreen Routinely? Yes Information not available 06/16/2023 Have You Recently Traveled Abroad? No [id number] Information not available 09/09/2022 Are You Currently In School? No [email or web address] Information not available 06/16/2023 Sex: Female Functional Status Question Answer Note LastModified by Organizat ion Details LastModified Time Do you use any illicit or recreational drugs? No [email or web address] Information not available 06/16/2023 What is your level of alcohol consumption? Occasional [email or web address] Information not available 06/16/2023 Are you currently employed? Yes [email or web address] Information not available 06/16/2023 What is your occupation? [employer] [email or web address] Information not available 06/16/2023 Mental Status None recorded. Family History Relationship Description Onset Age of this Age Resolved Age Notes LastModified by Organization Details LastModified Time Paternal Grandmother Malignant tumor of colon [email or web address] Not available 2022 14:19:28 Mother Polyp of colon [email or web address] Not available 2022 14:19:42 Medical History Condition Response GOUT Y Gynecological History Statement/Question Response Date of Last Colonoscopy Most Recent Mammogram 12/10/2022 Date of LMP 05/26/2023 Obstetrics History GPAL:G 0 P 0 0 0 0 Immunizations Vaccine Type Date Status Note Provider Nam e and Address Organization Details Recorded Time COVID-19, mRNA, LNP-S, PF, 30 mcg/0.3 mL dose 05/20/2021 completed Marry Chen, [employer] WORK[employer] null, [place] [facility] [place] [employer] 04/09/2023 10:21:26 Influenza, split virus, quadrivalent, PF 05/20/2021 completed Not Available [facility] 02:48:46 Past Encounters Encounter ID Performer Location Encounter Start Date Encounter Closed Date Diagnosis/Indication Diagnosis SNOMED-CT Code Diagnosis ICD10 Code Diagnosis Note [id number] Christianne Alex MD [facility] [address] [place] [address] 10/16/2020 00:00:00 10/17/2020 06:24:57 [id number] Christianne Alex MD [facility] [place] [facility] [place] [address] 04/30/2021 00:00:00 05/01/2021 05:38:56 [id number] Christianne Alex MD [facility] [address] [place] [address] 06/02/2021 00:00:00 06/02/2021 20:22:31 [id number] [facility] Podiatry Benjie Meneses [address] [facility] [address] [place] [address] 06/23/2021 00:00:00 06/25/2021 15:39:15 [id number] Christianne Alex MD [facility] [address] [place] [address] 07/17/2021 00:00:00 07/17/2021 21:58:06 [id number] Alex MD [facility] [place] [address] [place] [address] 08/18/2021 00:00:00 08/19/2021 05:39:05 [id number] Christianne Alex MD [facility] [place] [address] [place] [address] 11/20/2021 00:00:00 11/20/2021 21:26:54 [id number] Christianne Alex MD [facility] [place] [address] [place] [address] 05/07/2022 00:00:00 05/07/2022 14:48:42 [id number] Christianne Alex MD [facility] [place] [address] [place] [address] 06/25/2022 00:00:00 06/25/2022 20:29:04 [id number] Christianne Alex MD [facility] [place] [address] [place] [address] 09/23/2022 14:06:11 09/23/2022 14:46:28 Anxiety 10102498 F41.9 D/c lexapro, she did x 2 days ago. Will start buspar s/e discussed with pt. Chronic low back pain 27 5821733 M54.50 [id number] Christianne Alex MD [facility] [place] [address] [place] [address] 12/25/2022 09:13:49 12/25/2022 09:44:22 Anxiety 61301387 F41.9 Wants something that does not cause weight gain. F/u in 6 weeks. Chronic low back pain 27 8392543 M54.50 [id number] Christianne Alex MD [facility] [place] [address] [place] [address] 04/09/2023 10:16:39 04/09/2023 10:36:33 Anxiety 10184623 F41.9 Will increase buspar to 10 mg BID Acute left otitis media 366874912 H66.92 Serous otitis media 8032 7007 H65.91 [id number] Christianne Alex MD [facility] [place] [address] [facility] [place] [address] 06/16/2023 14:13:58 06/16/2023 14:41:26 Adult health examination 465679217 Z00.00 Hyperlipid emia screening 889746779 Z13.221 [id number] Christianne Alex MD [facility] [place] [address] [place] [address] [place] [address] 09/20/2023 13:58:10 09/20/2023 14:30:15 At increased risk of nutritional deficit 474954202 Z91.89 Thrombocyt openic disorder 489222274 D69.6 Medial epi condylitis of right elbow joint 8952030834 69474 M77.01 Chronic low back pain 27 8459784 M54.50 Anxiety 41998442 F41.9 [id number] Tereso Charles MD [facility] [place] [address] [place] [address] [place] [address] 12/23/2023 15:09:57 12/23/2023 15:58:07 Anxiety 41593468 F41.9 Menorrhagia 864260537 N9 2.0 Backache 043638969 M54.9 Low back pain 271065336 M54.50 Vitamin D below reference range 857187730 E55.9 [id number] Tereso Charles MD [facility] [place] [address] [place] [address] [place] [address] 05/08/2024 13:57:07 05/08/2024 15:01:04 Chronic low back pain 055695746 M54.50 Menorrhagia 297019547 N9 2.0 Depressive disorder 3548 9007 F32.A Attention deficit hyperactivity disorder, 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 9 Prolapsed lumbar intervertebral disc 276319208 M51.26 [id number] Tereso Charles MD [address] [address] 11/03/2024 11:27:58 11/03/2024 12:27:14 Allergic rhinitis 09225460 J30.9 Depressive disorder 3548 9007 F32.A Attention deficit hyperactivity disorder, predominantly inattentive type 79946987 F90.0 Health Concerns Section Related Observation LastModified by Organization Detai ls LastModified Time None Recorded Concern Status LastModified by Organization Details LastModified Time None Recorded Advance Directives Directive None Recorded Payers Insurance Date Sequence Insurance Name Policy Number Policy Rodriguez Covered Member ID Rodriguez Member ID Guarantor Name 06/16/2023 1 [employer] [id number] Anna Spangler [id number] 1 Anna Spangler 04/09/2023 1 *SELF PAY* Zachary Spangler Notes Date Note Type Note Provider Name and Address Organization Details Recorded Time 09/20/2023 text/html right arm repetitive motion CIER[facility] Posadas [address], [place], [address], [employer] 09/29/2023 17:07:46 12/23/2023 text/html anxiety , menstrual pain and snappish during period CIER[facility] Posadas [address], [place], [address], [employer] 01/08/2024 09:51:33 05/08/2024 text/html PT did not help . brother had adhd as a child . Her daughter just diagnosed . [facility]ER[facility] Posadas [address], [place], [address], [employer] 06/04/2024 16:30:55 08/08/2024 text/html muscle twitches with bupropion , she'd like to get back to running , hips hurt , pilates and stretching just not the same as running . carrying 5 kids around has done a number on her hips . her 7 y/o would still want her to carry him around ! CIERA Posadas [address], [place], [address], [employer] 08/11/2024 20:07:22 11/03/2024 text/html needs extra fluoxetine during her periods [facility] Posadas [address], [place], [address], [employer] 11/12/2024 14:35:10 OBGyn Episode No OBEpisode recorded.
--- OUTSIDE RECORDS SUMMARY | 2025-01-10 13:12 | XMS_ITS | Data Portability ---
Author Organization [facility] [place] Address [address] [place] [address] Care Team Providers Care Telehealth Case Manager Name Role Phone JIMMY CARLASYLVIA Primary Care Provider Assessment Encounter Date Assessment Date Assessment LastModified by Organization Details LastModified Time 08/06/2020 08/06/2020 Annual gynecological exam performed. Patient will come back in a year unless there are new symptoms. Not available 08/06/2020 14:05:14 10/22/2021 10/22/2021 Annual gynecological exam performed. Patient will come back in a year unless there are new symptoms. Not available 10/22/2021 13:05:38 12/03/2022 12/03/2022 Annual gynecological exam performed. Patient will come back in a year unless there are new symptoms. [email or web address] Not available 12/03/2022 18:37:37 12/16/2023 12/16/2023 Annual gynecological exam performed. Patient will come back in a year unless there are new symptoms. [email or web address] Not available 12/16/2023 14:11:40 Plan of Treatment Reminders Order Date Submit Date Provider Last Modified By Organization Details Last Modified Time Details Appointments None recorded. Lab None recorded. Referral None recorded. Procedures None recorded. Surgeries None recorded. Imaging MAMMO, screening, bilateral 2023 024 [email or web address] [facility], [address], [place], [address], 06/25/202 4 10:51:03 MAMMO, [facility], [facility] [address] [place], [address], 3 05:01:16 Medication Orders None recorded. Patient TargetsNo targets recorded. Patient Instructions Encounter Date Encounter Id Patient Instructions Last Modified By Organization Details Last Modified Time 08/06/2020 [id number] [email or web address] Not available 14:47:40 Reason for Referral None Reported. 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 Genie bustillo d by Dakota Ordoñez ed, CT on 2021 at 7:11 PM ----- ----- ----- ----- ----- ----- ----- ----- ----- ----- ----- ----- ----- ----- ----- ----- ----- ---- HPV RESUL TS: HPV mRNA E6/E7 : No HPV mRNA Detec kris NOTE: This high risk HPV mRNA assay detec ts fourt een high- risk HPV types (16, 18, 31, 33, 35, 39, 45, 51, 52, 56, 58, 59, 66, 68) witho ut diffe renti ation . COMME NT: Note: This speci men was revie wed by a Cytot echno logis t and/o r Patho logis t (as indic ated in this repor t) after evalu ation using the Thinp rep Imagi ng Syste m. [facility] INFOR MATIO N: Menst rual Statu s: LMP (if appli cable ): Clini jose roberto Histo ry/Pr eviou s Pap: Type of Neopl modesta (if appli cable ): Signi fican t Clini jose roberto Findi ngs: Other Histo ry: Hormo jane (if appli cable ): PAP EDUCA SATYA L NOTE: The Pap Test is a scree delon test with an inher ent false negat aleisha rate. Liqui d-bas ed sampl ing may decre ase, but will not elimi moises, false negat aleisha resul ts. A negat aleisha resul t does not precl ude the prese nce and/o r devel opmen t of disea se, since the prese nce of abnor mal cells in the sampl e depen ds on the locat ion of the lesio n and sampl ing techn ique. Lina nued regul ar scree delon is the best metho d of cance r preve ntion . If repor kris cytol ogic findi ng do not corre late with physi jose roberto and/o r histo rical findi ngs, furth er inves tigat ion is recom juliette d, as clini benita proctor nted. 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 Elect goran baird iwona d by Maggie Petersen ret, CT on 2022 at 6:29 AM ----- ----- ----- ----- ----- ----- ----- ----- ----- ----- ----- ----- ----- ----- ----- ----- ----- ---- HPV RESUL TS: HPV mRNA E6/E7 : No HPV mRNA Detec kris NOTE: This high risk HPV mRNA assay detec ts fourt een high- risk HPV types (16, 18, 31, 33, 35, 39, 45, 51, 52, 56, 58, 59, 66, 68) witho ut diffe renti ation . COMME NT: This speci men was revie wed by a Cytot echno logis t and/o r Patho logis t (as indic ated in this repor t) after evalu ation using the Thinp rep Imagi ng Syste m. [facility] INFOR MATIO N: Menst rual Statu s: LMP (if appli cable ): Clini jose roberto Histo ry/Pr eviou s Pap: Type of Neopl modesta (if appli cable ): Signi fican t Clini jose roberto Findi ngs: Other Histo ry: Hormo jane (if appli cable ): PAP EDUCA SATYA L NOTE: The Pap Test is a scree delon test with an inher ent false negat aleisha rate. Liqui d-bas ed sampl ing may decre ase, but will not elimi moises, false negat aleisha resul ts. A negat aleisha resul t does not precl ude the prese nce and/o r devel opmen t of disea se, since the prese nce of abnor mal cells in the sampl e depen ds on the locat ion of the lesio n and sampl ing techn ique. Lina nued regul ar scree delon is the best metho d of cance r preve ntion . If repor kris cytol ogic findi ng do not corre late with physi jose roberto and/o r histo rical findi ngs, furth er inves tigat ion is recom juliette d, as clini benita proctor nted. Not Available [facility] (Lab) [address], [place], [address], 12/05/2022 07:33:37 12/16/19 24 12/16/2023 IMAGE GUIDE D PAP AND HPV REGAR DLESS image guided Pap, HPV regardless of Pap result SEE RESULT S BELOW CASE REPOR T: Cytol ogy Gynec ologi jose roberto Repor t Case: [id number] Autho yvette barriga Provi mikey: Derek Clements Colle cted: 12/15 1431 ACQUISITIONS EDITOR Order ing Locat ion: [place] [facility] [place] Recei elise: 12/16 0909 First Scree n: Chary Stephens , CT Rescr een: Maggie Petersen ret, CT Speci men: Scree delon Pap - Image d, Cervi x STATE MENT OF ADEQU ACY: Satis facto ry for evalu ation Trans forma tion zone compo nent prese nt ----- ----- ----- ----- ----- ----- ----- ----- ----- ----- ----- ----- ----- ----- ----- ----- ----- ---- FINAL DIAGN OSIS: Negat aleisha for Intra epith elial Lesio n or Orquidea lawrence (NIL) . Elect goran baird iwona d by Maggie Petersen ret, CT on 2023 at 2:21 PM ----- ----- ----- ----- ----- ----- ----- ----- ----- ----- ----- ----- ----- ----- ----- ----- ----- ---- HPV RESUL TS: HPV mRNA E6/E7 : No HPV mRNA Detec kris NOTE: This high risk HPV mRNA assay detec ts fourt een high- risk HPV types (16, 18, 31, 33, 35, 39, 45, 51, 52, 56, 58, 59, 66, 68) witho ut diffe renti ation . COMME NT: This speci men was revie wed by a Cytot echno logis t and/o r Patho logis t (as indic ated in this repor t) after evalu ation using the Thinp rep Imagi ng Syste m. [facility] INFOR MATIO N: Menst rual Statu s: LMP (if appli cable ): Clini jose roberto Histo ry/Pr eviou s Pap: Type of Neopl modesta (if appli cable ): Signi fican t Clini jose roberto Findi ngs: Other Histo ry: Hormo jane (if appli cable ): PAP EDUCA SATYA L NOTE: The Pap Test is a scree delon test with an inher ent false negat aleisha rate. Liqui d-bas ed sampl ing may decre ase, but will not elimi moises, false negat aleisha resul ts. A negat aleisha resul t does not precl ude the prese nce and/o r devel opmen t of disea se, since the prese nce of abnor mal cells in the sampl e depen ds on the locat ion of the lesio n and sampl ing techn ique. Lina nued regul ar scree delon is the best metho d of cance r preve ntion . If repor kris cytol ogic findi ng do not corre late with physi jose roberto and/o r histo rical findi ngs, fur er inves tigat ion is recom juliette d, as clini benita villedaa nted. Not Available [facility] (Lab) [address], [place], [address], 12/20/2023 15:24:48 02/04/20 24 02/03/2024 MAMMO , scree delon, bilat eral No observ ation record ed. [facility] [address], [place], [address], 02/08/2024 15:57:34 02/04/20 24 02/03/2024 MAMMO , scree delon, bilat eral No observ ation record ed. [email or web address] [facility] [address], [place], [address], 02/07/2024 13:28:31 03/02/20 24 03/01/2024 US, breas t, unila teral No observ ation record ed. [email or web address] [facility] [address], [place], [address], 03/07/2024 17:55:53 Result Notes None recorded. Problems Name Problem SNOMED Code Status Onset Date Resolution Date Notes Provider Name and Address Organization Details Recorded Time Gestatio n period, 29 weeks [id number] Completed 201608/06/2020 29 weeks gestatio n of pregnanc y;Practi ce ID: 0001 Florecita knowles, [facility] 12:50:39 Normal pregnanc y in multigra maria teresa [id number] 4106 Completed 201608/06/2020 Encounte r for suprvsn of normal pregnanc y, third trimeste r;Practi ce ID: 0001 Florecita knowles, [facility] 12:50:58 Complica tion occurrin g during pregnanc y [id number] Completed 201608/06/2020 Inj/pois n/oth conseq of external causes comp preg, third tri;Prac libra ID: 0001 Florecita knowles, [facility] 12:50:30 Gestatio n period, 37 weeks [id number] Completed 201608/06/2020 37 weeks gestatio n of pregnanc y;Practi ce ID: 0001 Florecita Tony eleni, [facility] 12:50:40 Transpor t accident Completed 201608/06/2020 Other specifie d transpor t accident s, initial encounte r;Practi ce ID: 0001 Florecita Tony eleni, [facility] 12:51:37 Complica tion of pregnanc y, childbir th and/or puerperi um [id number] Completed 201608/06/2020 Oth diseases and conditio ns compl preg/chl dbrth;Pr actice ID: 0001 Florecita Tony eleni, [facility] 12:51:40 Gestatio n period, 38 weeks 12831311 Completed 201608/06/2020 38 weeks gestatio n of pregnanc y;Practi ce ID: 0001 Florecita Tony null, [facility] 12:50:41 Uterine size for dates discrepa ncy Completed 201608/06/2020 Uterine size-patsy e discrepa ncy, third trimeste r;Practi ce ID: 0001 Florecita Tony null, [facility] 12:51:45 False labor at or after 37 complete d weeks of gestatio n [id number] Completed 201608/06/2020 False labor at or after 37 complete d weeks of gestatio n;Practi ce ID: 0001 Florecita Chavo null, [facility] 12:50:34 Gestatio n period, 39 weeks [id number] Completed 201608/06/2020 39 weeks gestatio n of pregnanc y;Practi ce ID: 0001 Florecita knowles, [facility] 12:50:43 Marginal insertio n of umbilica l cord [id number] Completed 201608/06/2020 Velament ous insertio n of umbilica l cord, third trimeste r;Practi ce ID: 0001 Florecita knowles, [facility] 12:50:54 Lacerati on of female perineum Completed 201608/06/2020 Second degree perineal lacerati on during delivery ;Practic e ID: 0001 Florecita knowles, [facility] 12:50:51 Single live from singleto n pregnanc y [id number] Completed 201608/06/2020 Single live ;Pr actice ID: 0001 Florecita knowles, [facility] 12:51:24 Gestatio n period, 40 weeks 03559915 Completed 201608/06/2020 40 weeks gestatio n of pregnanc y;Practi ce ID: 0001 Florecita knowles, [facility] 12:50:45 Lochia finding Completed 201608/06/2020 Encounte r for routine postpart um follow-u p;Practi ce ID: 0001 Florecita knowles, [facility] 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 12:51:28 Thyroid disorder screenin g Completed 201008/06/2020 Screenin g for thyroid disorder s;Record ed Elsewher e: No Locat ion: [facility] S ource: [employer] Architect bushra: N Practi ce ID: 0001 George lable Time: 04:40:00 PM Florecita knowles, [facility] 12:51:34 Secondar y amenorrh ea [id number] Completed 201508/06/2020 Secondar y amenorrh ea;Recor ded Elsewher e: No [facility] [employer] Architect buhsra: N Practi ce ID: 0001 George lable Time: 01:15:00 PM Florecita knowles, [facility] 12:51:22 Obstetri c non-puru lent mastitis - delivere d with postnata l complica tion [id number] Completed 201108/06/2020 Postpart um nonpurul ent mastitis ;Recorde d Elsewher e: No [facility]: [employer] Architect bushra: N Practi ce ID: 0001 George lable Time: 11:45:00 AM Florecita Tony [facility], [facility] 12:51:00 Nausea [id number] Completed 201508/06/2020 Nausea;R ecorded Elsewher e: No [facility]: [employer] Cloud Services Architect bushra: N Practi ce ID: 0001 George lable Time: 11:15:00 AM Florecita knowles [facility] 12:50:56 Infectio n screenin g Completed 201508/06/2020 Encounte r for screenin g for oth infec/pa rastc diseases ;Recorde d Elsewher e: No [facility] S ource: [employer] Architect bushra: N Practi ce ID: 0001 George lable Time: 01:15:00 PM Florecita knowles [facility] 12:50:46 Postpart um care Completed 201308/06/2020 Post Followup ;Recorde d Elsewher e: No [facility]: [employer] Architect bushra: N Practi ce ID: 0001 George lable Time: 05:15:00 PM Florecita knowles, [facility] 12:51:08 Screenin g for malignan t neoplasm of cervix Completed 201108/06/2020 Screenin g for malignan t neoplasm s of the cervix;R ecorded Elsewher e: No [facility]: [employer] Architect bushra: N Practi ce ID: 0001 George lable Time: 03:45:[address] [facility] 12:51:20 Sciatica [id number] Completed 201308/06/2020 Sciatica ;Recorde d Elsewher e: No [facility]: [employer] Architect bushra: N Practi ce ID: 0001 George lable Time: 04:30:00 PM Florecita knowles, [facility] 12:51:17 Pregnanc y detectio n examinat ion Completed 201508/06/2020 Encounte r for pregnanc y test, result positive ;Recorde d Elsewher e: No [facility]: [employer] Architect bushra: N Practi ce ID: 0001 George lable Time: 04:00:00 PM Florecita knowles [facility] 12:51:14 Amenorrh ea [id number] Completed 201108/06/2020 Absence of menstrua tion;Rec orded Elsewher e: No [facility]: [employer] Architect bushra: N Practi ce ID: 0001 George lable Time: 03:45:00 PM Florecita knowles, [facility] 12:50:25 Ultrason ography Completed 201308/06/2020 Antenata l screenin g for malforma tion using ultrason ics;Abhishek rded Elsewher e: No Locat ion: [facility] S ource: [employer] Services Architect bushra: N Maryti ce ID: 0001 George lable Time: 04:45:00 PM Florecita knowles, [facility] 12:51:41 Antenata l screenin g Completed 201308/06/2020 Antenata l screenin g for malforma tion using ultrason ics;Abhishek rded Elsewher e: No [facility] S ource: [employer] Architect bushra: N Albertina ce ID: 0001 George lable Time: 04:45:00 PM Florecita knowles, [facility] 12:50:26 Congenit al malforma tion [id number] Completed 201308/06/2020 Antenata l screenin g for malforma tion using ultrason ics;Abhishek rded Elsewher e: No [facility] S ource: [employer] Architect bushra: N Albertina ce ID: 0001 George lable Time: 04:45:00 PM Florecita knowles, [facility] 12:50:31 Routine antenata l care Completed 201308/06/2020 Supervis ion of other normal pregnanc y;Record ed Elsewher e: No [facility]: [employer] bushra: N Maryti ce ID: 0001 George lable Time: 05:30:00 PM Florecita knowles, [facility] 12:51:16 Breast finding [id number] Completed 201108/06/2020 Other signs and symptoms in breast;R ecorded Elsewher e: No [facility]: [employer] bushra: N Practi ce ID: 0001 George lable Time: 03:45:00 PM Florecita knowles, [facility] 12:50:27 Pregnanc y test positive [id number] Completed 201108/06/2020 Pregnanc y examinat ion or test, positive result;R ecorded Elsewher e: No [facility]: [employer] bushra: N Practi ce ID: 0001 George lable Time: 03:45:00 PM Florecita knowles, [facility] 12:51:[address] Concept Completed 201708/06/2020 Encntr for general adult medical exam w/o abnormal findings ;Recorde d Elsewher e: No [facility]: [employer] bushra: N Practi ce ID: 0001 George lable Time: 01:00:00 PM Florecita knowles, [facility] 12:51:26 Pain of left shoulder joint [id number] 245155 Completed 201508/06/2020 Pain in left shoulder ;Recorde d Elsewher e: No [facility]: [employer] bushra: N Practi ce ID: 0001 George lable Time: 08:30:00 AM Florecita knowles, [facility] 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 12:51:30 Uterine size for dates discrepa ncy [id number] Completed 201208/06/2020 UTERINE SIZE STONE-ANTE PAR;Abhishek rded Elsewher e: No [facility]: [employer] bushra: N Practi ce ID: 0001 George lable Time: 04:15:00 PM Florecita Chaov knowles, [facility] 12:51:46 Known OR suspecte d abnormal ity affectin g manageme nt of mother Completed 201108/06/2020 Unspecif ied suspecte d abnormal ity, affectin g manageme nt of mother, unspecif ied as to episode of care;Rec orded Elsewher e: No [facility] S ource: [employer] Architect bushra: N Practi ce ID: 0001 George lable Time: 04:00:00 PM Florecita Chavo null, [facility] 12:50:49 Traumati c or non-trau matic injury [id number] Completed 201608/06/2020 Contusio n;Record ed Elsewher e: No [facility]: [employer] bushra: N Practi ce ID: 0001 George lable Time: 03:45:00 PM Florecita Chavo knowles, [facility] 12:51:38 Poor growth affectin g manageme nt 045688215 Completed 201108/06/2020 GROWTH POOR SGA;Prac libra ID: 0001 Florecita knowles, [facility] 12:51:07 Delivery normal [id number] Completed 201108/06/2020 Normal delivery ;Practic e ID: 0001 Florecita knowles, [facility] 12:50:33 Pain in limb 37021649 Completed 201308/06/2020 Pain in limb;Pra ctice ID: 0001 Florecita knowles, [facility] 12:51:01 Urinary tract infectio us disease 40553446 Completed 201308/06/2020 Urinary tract infectio n, site not specifie d;Practi ce ID: 0001 Florecita knowles [facility] 12:51:42 Vomiting of pregnanc y 10270011 Completed 201508/06/2020 Vomiting of pregnanc y, unspecif ied;Prac libra ID: 0001 Florecita Tony [facility] 12:51:48 Gestatio n period, 13 weeks 75473787 Completed 201508/06/2020 13 weeks gestatio n of pregnanc y;Practi ce ID: [address] [facility] 12:50:37 Pregnanc y, childbir th and puerperi um finding Completed 201608/06/2020 Oth pregnanc y related conditio ns, third trimeste r;Practi ce ID: 0001 Florecita knowles, [facility] 12:50:29 Syphilis test finding 261456352 Completed 201508/06/2020 Encntr screen for infectio ns w sexl mode of transmis s;Record ed Elsewher e: No [facility] S ource: [employer] Architect bushra: N Practi ce ID: 0001 George lable Time: 01:15:00 PM [facility] 12:51:31 Inflamma tory disorder of breast 077286591 Completed 201008/06/2020 Inflamma tory disease of breast;R ecorded Elsewher e: No Locat ion: [facility] S ource: [employer] Architect bushra: N Maryti ce ID: 0001 George lable Time: 04:40:00 PM Florecita knowles [facility] 12:50:48 Threaten ed miscarri age [id number] Completed 201108/06/2020 Threaten ed , antepart um;Recor ded Elsewher e: No Locat ion: [facility] S ource: [employer] Cloud [employer] Architect bushra: N Maryti ce ID: 0001 George lable Time: 10:00:00 AM Florecita knowles [facility] 12:51:33 anatomy study Completed 201108/06/2020 [facility] ANATMC SURVEY;P ractice ID: 0001 Florecita knowles, [facility] 12:50:36 Problem Notes None recorded. Procedures Surgical History Date Name Laterality Status Provider Name and Address Organization Details Recorded Time 12/04/19 23 Date of Last Pap Smear completed Cheryl David [facility] 12/03/2022 18:36:45 11/10/19 23 Date of Last Mammogram completed Jackie Gavin [facility] 12/16/2023 14:17:25 07/12/19 08 Colposcopy completed Cheryl David [facility] 12/03/2022 18:37:09 07/12/19 08 Colposcopy completed Cheryl David [facility] 12/03/2022 18:42:12 07/12/19 08 LEEP completed Joanna Page [facility] 09/09/2021 16:52:40 07/12/19 04 frontal sinusectomy completed Cheryl David [facility] 12/03/2022 18:43:06 07/12/19 03 frontal sinusectomy completed Cheryl David [facility] 12/03/2022 18:43:03 07/12/19 00 Tonsillectomy completed Cheryl David [facility] 12/03/2022 18:43:47 07/12/18 98 extraction of wisdom tooth completed Cheryl David [facility] 12/03/2022 18:43:34 Imaging Results None recorded. Procedure Notes None recorded. Medical Equipment None Reported. Allergies Allergen ID Allergen Name Allergen Category Reaction Reaction Severity Criticality Documentation Date Start Date Code Code System Note Provider Name and Address Organization Details Recorded Time 19146 Product containin g penicilli n (product) medicatio n Not available Not available Not available 06/28/2020 22233 8001 SNOMED Comme nt: [facility]at [facility]; Not Available [facility] 0 14:20:46 67980 Substance with sulfonami de structure and antibacte rial mechanism of action (substanc e) medicatio n rash Not available Not available 06/28/2020 18594 8003 SNOMED React ion: rash; Comme nt: Locat ion: [facility]; Not Available [facility] 0 14:20:46 04342 Reglan medicatio n Not available Not available Not available 12/03/2022 9230 RxNorm Cheryl Hugotz [facility], [facility] 3 18:38:11 Medications Name Sig Start Date Stop Date Status Note LastModified by Organization Details LastModified Time cyclobenz aprine 10 mg tablet TAKE 1 TABLET 3 TIMES A DAY BY ORAL ROUTE NEEDED. active Not Available Not Available No t Available buspirone 5 mg tablet TAKE 1 TABLET BY MOUTH TWICE A DAY 12/15 completed Not Available Not Available Not Available Vicodin 5 mg-500 mg tablet take 1 tablet by oral route 4 - 6 hours as needed for pain 06/21 completed Prescrib ed Elsewher e: No [facility] By: connor Parekho unter DateTime : 04/28/20 12 05:18:26 PM Not Available Not Available Not Available hydrocodo ne 5 mg-acetam inophen 325 mg tablet TAKE 1 TABLET BY MOUTH THREE TIMES A DAY NEEDED active Not Available Not Available No t Available ibuprofen 200 mg capsule take 1 capsule by oral route every 6 hours as needed 08/18 completed Prescrib ed Elsewher e: Yes Loca tion: [facility] odify By: pritesh najera DateTime : 03/20/20 11 08:17:41 AM Not Available Not Available Not Available Zithromax Z-Librado 250 mg tablet take 2 tablet (500MG) by oral route every day for 1 day then 1 tablet (250 mg) by oral route once daily for 4 days 04/30 completed Prescrib ed Elsewher e: No Locat ion: [facility] odify By: tejas rayunter DateTime : 04/26/20 12 11:45:00 AM Not Available Not Available Not Available acetamino phen 300 mg-codein e 30 mg tablet TAKE 1 TABLET BY MOUTH EVERY 3-4 HOURS NEEDED - CAUTION SEDATION 12/03 completed Not Available Not Available Not Available meloxicam 7.5 mg tablet TAKE 1 TABLET BY MOUTH EVERY DAY NEEDED 12/15 completed Not Available Not Available Not Available Zofran 8 mg tablet take 1 tablet by oral route every 12 hours 02/15 completed Prescrib ed Elsewher e: No Locat [facility]: [facility] odify By: emma najera DateTime : 07/01/20 16 11:15:00 AM Not Available Not Available Not Available alprazola m 0.25 mg tablet TAKE 1 TABLET BY MOUTH THREE TIMES A DAY NEEDED 12/15 completed Not Available Not Available Not Available methocarb val 750 mg tablet TAKE 1 TABLET BY MOUTH THREE TIMES A DAY NEEDED 10/22 completed Not Available Not Available Not Available Diflucan 100 mg tablet take 1 tablet (100MG) by oral route every day 06/21 completed Prescrib ed Elsewher e: No Locat ion: [facility] odify By: connor Conte untlos DateTime : 05/20/20 12 03:45:00 PM Not Available Not Available Not Available baclofen 10 mg tablet take 1 tablet by oral route 4 times every day 05/20 completed Prescrib ed Elsewher e: No Locat ion: [facility] odify By: sparkle Faith r DateTime : 06/13/20 14 04:30:00 PM Not Available Not Available Not Available Soma 350 mg tablet take 1 tablet by oral route 3 times every day and at bedtime 05/20 completed Prescrib ed Elsewher e: No Locat ion: [facility] odify By: sparkle Faith r DateTime : 09/03/19 16 08:30:00 AM Not Available Not Available Not Available buspirone 10 mg tablet TAKE 1 TABLET BY MOUTH TWICE A DAY 12/15 completed Not Available Not Available Not Available gabapenti n 300 mg capsule TAKE 1 CAPSULE BY MOUTH AT BEDTIME 12/03 completed Not Available Not Available Not Available diclofena c sodium 75 mg tablet,de layed release TAKE 1 TABLET BY MOUTH TWICE A DAY 12/15 completed Not Available Not Available Not Available [place] 10 mg-325 mg tablet take 1 tablet by oral route every 4 - 6 hours as needed for pain 09/03 completed Prescrib ed Elsewher e: Yes [facility] By: luisito pardo DateTime : 02/15/20 14 01:45:00 PM Not Available Not Available Not Available gabapenti n 100 mg capsule TAKE 1 CAPSULE BY MOUTH TWICE A DAY 12/15 completed Not Available Not Available Not Available ibuprofen 600 mg tablet TAKE 1 TABLET BY MOUTH THREE TIMES A DAY WITH FOOD FOR 30 DAYS active Not Available Not Available No t Available methylpre dnisolone 4 mg tablets in a dose pack TAKE 6 TABLETS ON DAY 1 DIRECTED ON PACKAGE AND DECREASE BY 1 TAB EACH DAY FOR A TOTAL OF 6 DAYS 12/15 completed Not Available Not Available Not Available Vitamin D2 1,250 mcg (50,000 unit) capsule take 1 capsule (76020BG ITS) by oral route every week for 8 weeks 02/13 completed Prescrib ed Elsewher e: No [facility] By: chelsey rayunter DateTime : 09/06/19 16 02:20:54 PM Not Available Not Available Not Available Diflucan 200 mg tablet take 1 tablet (200MG) by oral route every day 06/21 completed Prescrib ed Elsewher e: No Locat ion: [facility] odify By: connor daigle DateTime : 05/20/20 12 03:45:00 PM Not Available Not Available Not Available doxycycli ne hyclate 100 mg tablet TAKE 1 TABLET BY MOUTH TWICE A DAY 12/15 completed Not Available Not Available Not Available buspirone 15 mg tablet TAKE 1 TABLET TWICE A DAY BY MOUTH AFTER MEAL(S) FOR 30 DAYS. active Not Available Not Available No t Available iron ER 325 mg (65 mg iron) capsule,e xtended release 08/18 completed Prescrib ed Elsewher e: Yes Loca tion: [facility] odify By: pritesh Encounte r DateTime : 03/20/20 11 04:40:07 PM Not Available Not Available Not Available escitalop julio césar 5 mg tablet 12/03 completed Not Available Not Available Not Available hydrocodo ne 10 mg-acetam inophen 300 mg tablet Take 1 tablet every 6 hours by oral route. 10/22 completed Not Available Not Available Not Available Calcio Rod 500 mg tablet 08/18 completed Prescrib ed Elsewher e: Yes Loca tion: [facility] odify By: pritesh Encounte r DateTime : 03/20/20 11 04:40:07 PM Not Available Not Available Not Available Xanax 10/22 completed Not Available Not Available Not Available gabapenti n 10/22 completed Not Available Not Available Not Available Keflex 750 mg capsule take 1 capsule (750MG) by oral route 2 times every day 05/20 completed Prescrib ed Elsewher e: No Locat ion: [facility] odify By: tejas pardo DateTime : 04/28/20 12 05:18:26 PM Not Available Not Available Not Available Sacha-C DHA 35 mg-1 mg-200 mg capsule TAKE 1 CAPSULE BY MOUTH EVERY DAY 08/06 completed Prescrib ed Elsewher e: No Locat ion: [facility] odify By: clif jimenez DateTime : 05/22/20 19 12:26:34 PM Not Available Not Available Not Available Tridonnaen-D uo DHA 29 mg-1 mg-400 mg oral pack take 1 by Oral route once for 30 days 06/18 completed Prescrib ed Elsewher e: No [facility] odify By: tejas pardo DateTime : 05/20/20 16 01:15:00 PM Not Available Not Available Not Available Vitafol-O ne 29 mg iron-1 mg-200 mg capsule 08/18 completed Prescrib ed Elsewher e: Yes [facility] By: tejas pardo DateTime : 03/20/20 11 08:17:41 AM Not Available Not Available Not Available One Daily 27 mg iron-800 mcg tablet take 1 tablet by oral route every day 05/20 completed Prescrib ed Elsewher e: Yes Loca tion: [facility] odify By: tejas pardo DateTime : 02/15/20 14 01:45:00 PM Not Available Not Available Not Available Vitals Date Recorded Body height Body mass index (BMI) Body weight Systolic blood pressure Diastolic blood pressure Provider Name and Address Organization Details Last Updated DateTime 08/06/2020 160.02 cm 20.7 kg/m2 57138.31 g 116 mm[Hg] 69 mm[Hg] Courtney Todd [facility] 1 14:15:13 Date Recorded Body height Body mass index (BMI) Body weight Systolic blood pressure Diastolic blood pressure Provider Name and Address Organization Details Last Updated DateTime 10/22/2021 157.48 cm 22.3 kg/m2 58436.27 g 122 mm[Hg] 74 mm[Hg] Joanna Page [facility] 2 13:07:18 Date Recorded Body height Body mass index (BMI) Body weight Systolic blood pressure Diastolic blood pressure Provider Name and Address Organization Details Last Updated DateTime 12/03/2022 157.48 cm 23.2 kg/m2 46302.23 g 103 mm[Hg] 66 mm[Hg] Cheryl David [facility] 3 18:37:59 Date Recorded Body height Body mass index (BMI) Body weight Systolic blood pressure Diastolic blood pressure Provider Name and Address Organization Details Last Updated DateTime 12/16/2023 157.48 cm 24 kg/m2 74782.6 g 120 mm[Hg] 75 mm[Hg] Jackie Romaine [facility] 4 14:13:06 Social History Question Answer Notes LastModified by Organizat ion Details LastModified Time Tobacco Smoking Status Never Smoker Courtney knowles, [facility] 08/06/2020 14:16:56 If You Are , What Was Your Level Of Alcohol Consumption Prior To ? None Information not available 08/06/2020 Are You Blind Or Do You Have Difficulty Seeing? No Information n ot available 09/09/2021 What Is Your Level Of Caffeine Consumption? Moderate Information not available 08/06/2020 In The 14 Days Before Symptom Onset, Have You Had Close Contact With A Laboratory-confirm ed COVID-19 While That Case Was Ill? No [email or web address] Information n ot available 12/03/2022 In The 14 Days Before Symptom Onset, Have You Had Close Contact With A Person Who Is Under Investigation For COVID-19 While That Person Was Ill? No [email or web address] Information not available 12/03/2022 Have You Been To An Area Known To Be High Risk For COVID-19? No [email or web address] Information not available 12/03/2022 Are You Deaf Or Do You Have Serious Difficulty Hearing? No Information not available 09/09/2021 What Type Of Diet Are You Following? REGULAR Information n ot available 10/22/2021 How Many Days Of Moderate To Strenuous Exercise, Like A Brisk Walk, Did You Do In The Last 7 Days? 5 Information not available 08/06/2020 On Those Days That You Engage In Moderate To Strenuous Exercise, How Many Minutes, On Average, Do You Exercise? 60 Information not available 08/06/2020 Have You Ever Been Counseled For Unhealthy Alcohol Use? No Information not available 08/06/2020 Do You Use Your Seat Belt Or Car Seat Routinely? Yes Information not available 09/09/2021 Do You Have Smoke And Carbon Monoxide Detectors In Your Home? Yes Information not available 09/09/2021 Do You Use Sunscreen Routinely? Yes Information not available 09/09/2021 Has Tobacco Cessation Counseling Been Provided? No Information not available 08/06/2020 Do You Have Difficulty Walking Or Climbing Stairs? No Information not available 09/09/2021 Sex: Unknown Functional Status Question Answer Note LastModified by Organizat ion Details LastModified Time Do you use any illicit or recreational drugs? No Information not available 08/06/2020 Do you or have you ever used any other forms of tobacco or nicotine? No Information not available 08/06/2020 What is your level of alcohol consumption? Occasional Information not available 08/06/2020 Are you able to walk? YESWOREST Information not available 09/09/2021 Are you able to care for yourself? Yes Information n ot available 09/09/2021 Do you have difficulty dressing or bathing? No Information not available 09/09/2021 What is your exercise level? Moderate Information not available 08/06/2020 Mental Status Question Answer Note LastModified by Organization D etails LastModified Time Do you feel stressed (tense, restless, nervous, or anxious, or unable to sleep at night)? [id number] Information not available 09/09/2021 Family History Relationship Description Onset Age of this Age Resolved Age Notes LastModified by Organization Details LastModified Time Mother Disorder of thyroid gland Not available 2020 14:06:53 Maternal Uncle Carcinoma in situ of lung Not available 14:07:01 Maternal Grandmother Congenital heart disease Not available 2020 14:07:08 Unspecified Relation Malignant tumor of breast patern al cousin Not available 10/22/2021 13:09:07 Medical History Condition Response Allergies (Food, seasonal, environmental ) Y Other N Breast Cancer N Drug/Latex Allergies/Reactions Y Blood Transfusion N Dermatologic Disorders N Lung Disease N Defects or Inherited Disease N Breast Problem N Gestational Diabetes N Hematologic disorders N Anesthesia Complications N History of STI N Deep Vein Thrombosis N Polycystic ovary syndrome N Anxiety Disorder Y Autoimmune disease N Arthritis N Infertility N Polyps N Acid Reflux (GERD) Y History of abnormal pap Y Cancer N Stroke N Varicosities N Neurologic/Epilepsy Y Endometriosis N High Cholesterol N Headaches Y Fibromyalgia Y Kidney Disease N Heart Problems N Kidney or Bladder Problems N Thyroid Problems N GI Problems Y Eating Disorder Y Anemia N Art (IVF or FET) N Psychiatric Illness Y Ovarian Cancer N Diabetes N Pulmonary (TB, Asthma) N Hepatitis/Liver Disease N No Past Medical History N Eczema N Urinary Tract Infection N Abuse/Domestic Violence N Asthma N Trauma/Violence N Depression/ depression Y Heart Disease N Pre-Eclampsia N Hypertension N Osteoporosis N Thrombophilias N Gynecological History Statement/Question Response Abnormal Pap Yes Flow Light Date of Last Mammogram 11/09/2022 Date of LMP 12/09/2023 Was last menstrual period normal Y STIs/STDs N Colposcopy 07/12/2007 Duration of Flow (days) 3 Current Control Method Partner Vas ectomy Are cycles usually normal Y Frequency of Cycle (Q days) 28 Sexually Active? Y Menses Monthly Y Age of first menstrual cycle 13 Date of Last Pap Smear 12/03/2022 Sexual Problems? N LMP Approximate Obstetrics History GPAL:G 5 P 5 0 0 5 Type Value Full Term 5 Living 5 Total 5 Past Encounters Encounter ID Performer Location Encounter Start Date Encounter Closed Date Diagnosis/Indication Diagnosis SNOMED-CT Code Diagnosis ICD10 Code Diagnosis Note [id number] [facility] [address] [address] 08/06/2020 13:57:02 08/06/2020 16:31:58 Gynecologic examination 96146409 Z01.419 Suggested Calcium with Vitamin D 1200-1500m g daily. Patient advised to get an annual flu shot in the fall and she could obtain at [facility] or [facility] clinic. Also to obtain TDap vaccinatio n if you have not had one in the last 10 years. Recommend yearly mammograms . Encouraged monthly self breast exams. Encourage safe sexual practices, to use condoms and limit partners if not already in a monogamous relationsh ip. Engage in daily exercise of low impact aerobic exercise 45-60 minutes 4-5 times weekly. Avoid tobacco and illicit drugs as well as using moderation with alcohol intake less than 1-2 8 oz beverages daily. This lifestyle behavior pattern will lead to less health conditions and longer life span. If BMI greater than 25 weight watchers or dietary consult advised. All questions have been answered. Patient appears to understand informatio n, but if you have any questions please call or respond to this email. No issues or concerns Sposue vasectomy Mamm orderd Additional precaution lili measures were taken to minimize potential exposure to the Covid-19 virus during this patient s visit, including available hand photoengraving photographer upon arrive, temperatur e check and being asked a series of screening questions. All staff wore face coverings during this encounter, as well as provided additional cleaning and sanitizing of all surfaces, including countertop s, pens, chairs, door handles, light switches, etc, prior to and following the patient s visit. [id number] Anai Johnson , [facility] [address] [address] 10/22/2021 12:49:57 10/22/2021 14:01:34 Gynecologic examination [id number] Z01.419 Z11.51 Suggested Calcium with Vitamin D 1200-1500m g daily. Patient advised to get an annual flu shot in the fall and she could obtain at [facility] or [facility] care clinic. Also to obtain TDap vaccinatio n if you have not had one in the last 10 years. Recommend yearly mammograms . Encouraged monthly self breast exams. Encourage safe sexual practices, to use condoms and limit partners if not already in a monogamous relationsh ip. Engage in daily exercise of low impact aerobic exercise 45-60 minutes 4-5 times weekly. Avoid tobacco and illicit drugs as well as using moderation with alcohol intake less than 1-2 8 oz beverages daily. This lifestyle behavior pattern will lead to less health conditions and longer life span. If BMI greater than 25 weight watchers or dietary consult advised. All questions have been answered. Patient appears to understand informatio n, but if you have any questions please call or respond to this email. Pap/hpv sent STD Screen declined Genetic Screen declined Colon Screen na Dexa Screen na Routine Labs UTD PCPMammo UTD WNL 2021 [id number] Anai Johnson [facility] [address] [address] 12/03/2022 18:16:07 12/08/2022 17:44:17 Gynecologic examination [id number] Z01.419 Z11.51 Suggested Calcium with Vitamin D 1200-1500m g daily. Patient advised to get an annual flu shot in the fall and she could obtain at [facility] or [facility]. Also to obtain TDap vaccinatio n if you have not had one in the last 10 years. Recommend yearly mammograms . Encouraged monthly self breast exams. Encourage safe sexual practices, to use condoms and limit partners if not already in a monogamous relationsh ip. Engage in daily exercise of low impact aerobic exercise 45-60 minutes 4-5 times weekly. Avoid tobacco and illicit drugs as well as using moderation with alcohol intake less than 1-2 8 oz beverages daily. This lifestyle behavior pattern will lead to less health conditions and longer life span. If BMI greater than 25 weight watchers or dietary consult advised. All questions have been answered. Patient appears to understand informatio n, but if you have any questions please call or respond to this email.Pap/ hpv sent (hx of [place])STD Screen declinedGe netic Screen discussedC olon Screen PCPDexa Screen naRoutine Labs PCPMammo-c ompleted 2022 Screening mammography 24 [id number] Z12.31 [id number] Anai Johnson [facility] [address] [address] 12/16/2023 14:04:59 12/16/2023 14:38:23 Gynecologic examination [id number] Z01.419 Z11.51 Suggested Calcium with Vitamin D 1200-1500m g daily. Patient advised to get an annual flu shot in the fall and she could obtain at [facility] or [facility] care clinic. Also to obtain TDap vaccinatio n if you have not had one in the last 10 years. Recommend yearly mammograms . Encouraged monthly self breast exams. Encourage safe sexual practices, to use condoms and limit partners if not already in a monogamous relationsh ip. Engage in daily exercise of low impact aerobic exercise 45-60 minutes 4-5 times weekly. Avoid tobacco and illicit drugs as well as using moderation with alcohol intake less than 1-2 8 oz beverages daily. This lifestyle behavior pattern will lead to less health conditions and longer life span. If BMI greater than 25 weight watchers or dietary consult advised. All questions have been answered. Patient appears to understand informatio n, but if you have any questions please call or respond to this email.Pap/ hpv sent (hx of [facility] rs to send)STD Screen declinedGe netic Screen discussedC olon Screen PCPDexa Screen naRoutine Labs PCPMammo ordered Screening mammography 24 [id number] Z12.31 Health Concerns Section Related Observation LastModified by Organization Detai ls LastModified Time None Recorded Concern Status LastModified by Organization Details LastModified Time None Recorded Advance Directives Directive None Recorded Payers Insurance Date Sequence Insurance Name Policy Number Policy Rodriguez Covered Member ID Rodriguez Member ID Guarantor Name 12/25/2023 PAYMENT PLAN Anna Spangler 12/03/2022 [facility] [id number] Anna Spangler [id number] Anna Spangler 12/13/2023 1 [facility] [id number] Anna Spangler [id number] Anna Spangler Notes Date Note Type Note Provider Name and Address Organization Details Recorded Time 08/06/2020 text/html Annual GYNReport ed bypatient.History: no gynecologic complaints Menstrual cycle:Normal menses Urinary symptoms:No hematuria; No incontinence Vulva:No genital lesion Vagina:Normal vaginal discharge Breast:No breast pain; No breast lump; No nipple discharge Current Contraception:Sati sfied with current contraception; Monogamous relationship; Partner had vasectomy Sexual complaints:No sexual complaints; No pain during intercourse; Normal libido Menopausal Symptoms:No menopausal symptoms; Normal vaginal lubrication Psychological symptoms:No depression; No anxiety; No PMDD Preventive measures:Encourage self breast examination; Encourage regular exercise; Encourage no tobacco use; Encourage regular mammograms starting age 40; History of abnormal pap smear/cervical dysplasia; Needs to schedule mammogram Anai Johnson, [facility] [address] [place], [address], [place] [facility] 08/06/2020 14:48:31 10/22/2021 text/html Annual GYNReport ed bypatient.History: no gynecologic complaints Menstrual cycle:Normal menses Urinary symptoms:No hematuria; No incontinence Vulva:No genital lesion Vagina:Normal vaginal discharge Breast:No breast pain; No breast lump; No nipple discharge Current Contraception:Sati sfied with current contraception; Monogamous relationship; Partner had vasectomy Sexual complaints:No sexual complaints; No pain during intercourse; Normal libido Menopausal Symptoms:No menopausal symptoms; Normal vaginal lubrication Psychological symptoms:No depression; No anxiety; No PMDD Preventive measures:Encourage self breast examination; Encourage regular exercise; Encourage no tobacco use; Encourage regular mammograms starting age 40; Followed with Q3 year pap smear and high risk HPV typing; Mammogram performed within the past year [facility] [address], [place], [address], [facility] 10/22/2021 14:00:59 12/03/2022 text/html Annual GYNReport ed bypatient.History: no gynecologic complaints Menstrual cycle:Normal menses Urinary symptoms:No hematuria; No incontinence Vulva:No genital lesion Vagina:Normal vaginal discharge Breast:No breast pain; No breast lump; No nipple discharge Current Contraception:Sati sfied with current contraception; Partner had vasectomy Sexual complaints:No sexual complaints; No pain during intercourse; Normal libido Menopausal Symptoms:No menopausal symptoms; Normal vaginal lubrication Psychological symptoms:No depression; No anxiety; No PMDD Preventive measures:Encourage self breast examination; Encourage regular exercise; Encourage no tobacco use; Encourage regular mammograms starting age 40; Followed with yearly pap smears; History of abnormal pap smear/cervical dysplasia; Mammogram performed within the past year [facility] [address], [place], [address], [facility] 12/03/2022 18:56:40 12/16/2023 text/html Annual GYNReport ed bypatient.History: no gynecologic complaints Menstrual cycle:Normal menses Urinary symptoms:No hematuria; No incontinence Vulva:No genital lesion Vagina:Normal vaginal discharge Breast:No breast pain; No breast lump; No nipple discharge Current Contraception:Sati sfied with current contraception; Partner had vasectomy Sexual complaints:No sexual complaints; No pain during intercourse; Normal libido Menopausal Symptoms:No menopausal symptoms; Normal vaginal lubrication Psychological symptoms:No depression; No anxiety; No PMDD Preventive measures:Encourage self breast examination; Encourage regular exercise; Encourage no tobacco use; Encourage regular mammograms starting age 40; Followed with yearly pap smears; History of abnormal pap smear/cervical dysplasia; Needs to schedule mammogram Anai Johnson [facility]- [address], [place], [address], [facility] 12/16/2023 14:29:33 OBGyn Episode Ob Episode Information Episode Created Date Number of Fetuses Patient Bloodtype Patient rh Status Prepregnancy Weight lbs Domestic Partner Domestic Partner Phone Father Name Naphthalene Operator Helper Status 08/06/19 21 1 CLOSED Fetus Data First Name Last Name Admitted to NICU Weight (g) Sex Living Outcome Pediatric Complications Fetus ID Race Codes Race Delivery Type 3656.85 8704 M Full Term 7471 Vaginal Delivery Alvaro Calculation Initial Alvaro Date Initial Exam Date Initial Exam Provider Initial Ultrasound Date Last Menstrual Period Date Ultra Sound Weeks Gestation 0 Eighteen To Twenty Week Alvaro Update Ultra Sound Date Fundal Height At Umbil Quickening Date Ultra Sound Latest Weeks Gestation Final Alvaro Confirmed By Final Alvaro Confirmed Date Final Alvaro Date Ultra Sound Latest Days Gestation 0 0 Menstrual History Last Menstrual Date Menses Monthly On Bcp Conception Prior Menses Frequency Hcg Plus Date Menarche Onset Age Delivery Information Delivery Date Delivery Type Labor Anesthesia Weeks Gestation Incision Type Labor Labor Length Hrs Delivered By Post Complications Tubal Sterilization Discharge Date Comments 0 40 Discharge Information Feeding Method Contraceptive Method Maternal HG B and HCT Levels Ob Episode Information Episode Created Date Number of Fetuses Patient Bloodtype Patient rh Status Prepregnancy Weight lbs Domestic Partner Domestic Partner Phone Father Name Naphthalene Operator Helper Status 08/06/19 21 1 CLOSED Fetus Data First Name Last Name Admitted to NICU Weight (g) Sex Living Outcome Pediatric Complications Fetus ID Race Codes Race Delivery Type 3997.05 2704 M Full Term 7472 Vaginal Delivery Alvaro Calculation Initial Alvaro Date Initial Exam Date Initial Exam Provider Initial Ultrasound Date Last Menstrual Period Date Ultra Sound Weeks Gestation 0 Eighteen To Twenty Week Alvaro Update Ultra Sound Date Fundal Height At Umbil Quickening Date Ultra Sound Latest Weeks Gestation Final Alvaro Confirmed By Final Alvaro Confirmed Date Final Alvaro Date Ultra Sound Latest Days Gestation 0 0 Menstrual History Last Menstrual Date Menses Monthly On Bcp Conception Prior Menses Frequency Hcg Plus Date Menarche Onset Age Delivery Information Delivery Date Delivery Type Labor Anesthesia Weeks Gestation Incision Type Labor Labor Length Hrs Delivered By Post Complications Tubal Sterilization Discharge Date Comments 6 40 Discharge Information Feeding Method Contraceptive Method Maternal HG B and HCT Levels Ob Episode Information Episode Created Date Number of Fetuses Patient Bloodtype Patient rh Status Prepregnancy Weight lbs Domestic Partner Domestic Partner Phone Father Name Naphthalene Operator Helper Status 08/06/19 21 1 CLOSED Fetus Data First Name Last Name Admitted to NICU Weight (g) Sex Living Outcome Pediatric Complications Fetus ID Race Codes Race Delivery Type 3656.85 8704 F Full Term 7474 Vaginal Delivery Alvaro Calculation Initial Alvaro Date Initial Exam Date Initial Exam Provider Initial Ultrasound Date Last Menstrual Period Date Ultra Sound Weeks Gestation 0 Eighteen To Twenty Week Alvaro Update Ultra Sound Date Fundal Height At Umbil Quickening Date Ultra Sound Latest Weeks Gestation Final Alvaro Confirmed By Final Alvaro Confirmed Date Final Alvaro Date Ultra Sound Latest Days Gestation 0 0 Menstrual History Last Menstrual Date Menses Monthly On Bcp Conception Prior Menses Frequency Hcg Plus Date Menarche Onset Age Delivery Information Delivery Date Delivery Type Labor Anesthesia Weeks Gestation Incision Type Labor Labor Length Hrs Delivered By Post Complications Tubal Sterilization Discharge Date Comments 9 40 Discharge Information Feeding Method Contraceptive Method Maternal HG B and HCT Levels Ob Episode Information Episode Created Date Number of Fetuses Patient Bloodtype Patient rh Status Prepregnancy Weight lbs Domestic Partner Domestic Partner Phone Father Name Naphthalene Operator Helper Status 08/06/19 21 1 CLOSED Fetus Data First Name Last Name Admitted to NICU Weight (g) Sex Living Outcome Pediatric Complications Fetus ID Race Codes Race Delivery Type 3515.33 8 F Full Term 7473 Vaginal Delivery Alvaro Calculation Initial Alvaro Date Initial Exam Date Initial Exam Provider Initial Ultrasound Date Last Menstrual Period Date Ultra Sound Weeks Gestation 0 Eighteen To Twenty Week Alvaro Update Ultra Sound Date Fundal Height At Umbil Quickening Date Ultra Sound Latest Weeks Gestation Final Alvaro Confirmed By Final Alvaro Confirmed Date Final Alvaro Date Ultra Sound Latest Days Gestation 0 0 Menstrual History Last Menstrual Date Menses Monthly On Bcp Conception Prior Menses Frequency Hcg Plus Date Menarche Onset Age Delivery Information Delivery Date Delivery Type Labor Anesthesia Weeks Gestation Incision Type Labor Labor Length Hrs Delivered By Post Complications Tubal Sterilization Discharge Date Comments 4 38 Discharge Information Feeding Method Contraceptive Method Maternal HG B and HCT Levels Ob Episode Information Episode Created Date Number of Fetuses Patient Bloodtype Patient rh Status Prepregnancy Weight lbs Domestic Partner Domestic Partner Phone Father Name Naphthalene Operator Helper Status 08/06/19 21 1 CLOSED Fetus Data First Name Last Name Admitted to NICU Weight (g) Sex Living Outcome Pediatric Complications Fetus ID Race Codes Race Delivery Type 3316.66 4704 F Full Term 7470 Vaginal Delivery Alvaro Calculation Initial Alvaro Date Initial Exam Date Initial Exam Provider Initial Ultrasound Date Last Menstrual Period Date Ultra Sound Weeks Gestation 0 Eighteen To Twenty Week Alvaro Update Ultra Sound Date Fundal Height At Umbil Quickening Date Ultra Sound Latest Weeks Gestation Final Alvaro Confirmed By Final Alvaro Confirmed Date Final Alvaro Date Ultra Sound Latest Days Gestation 0 0 Menstrual History Last Menstrual Date Menses Monthly On Bcp Conception Prior Menses Frequency Hcg Plus Date Menarche Onset Age Delivery Information Delivery Date Delivery Type Labor Anesthesia Weeks Gestation Incision Type Labor Labor Length Hrs Delivered By Post Complications Tubal Sterilization Discharge Date Comments 2 39 Discharge Information Feeding Method Contraceptive Method Maternal HG B and HCT Levels
--- OUTSIDE RECORDS SUMMARY | 2025-01-10 13:12 | XMS_ITS | Clinical Summary ---
Author Organization [facility] Address [address] [place] [id number] Care Team Providers Care Personal Care Aid Name Role Phone Constantin Kearney Primary Care Provider + Social History Tobacco Use Types Packs/Day Years Used Date Smoking Tobacco: Never Assessed Comments Unknown Sex and Gender Information Value Date Recorded Sex Assigned at Not on file Legal Sex Female 5:16 PM CDT Gender Identity Not on file Sexual Orientation Not on file Plan of Treatment Health Maintenance Due Date Last Done Comments Annual Physical 1983 Hepatitis C 1998 Hepatitis B Vaccines (1 of 3 - 19+ 3-dose series) 1999 Cervical Cancer Screening Pa p with HPV Testing (Age 30 to 64) Every 5 Years 2010 Mammogram Screening 2020 COVID-19 Vaccine (2023-2 5 season) 2024 05/20/2021, 11/12/2020, 10/22/2020 DTaP, Tdap and Td Vaccines ( 3 - Td or Tdap) 08/17/2026 08/17/2016, 01/23/2014 Cervical Cancer Screening Pa p Smear (Age 30 to 64) Every 3 Years 12/15/2026 12/16/2023 Cervical Cancer Screening wi th HPV 12/15/2026 HPV Vaccines Aged Out No longer eligi ble based on patient's age to complete this topic Meningococcal B Vaccine Aged Out No l onger eligible based on patient's age to complete this topic Meningococcal Vaccine Aged Out No vee nivia eligible based on patient's age to complete this topic Pneumococcal Vaccine: Pediatrics (0 to 5 Years) and At-Risk Patients (6 to 49 Years) Aged Out No longer eligible b ased on patient's age to complete this topic RSV Immunizations Under 20 Months Aged Out No longer eligible b ased on patient's age to complete this topic Insurance [facility] Care Teams Personal Care Aid Relationship Specialty Start Date End Date Constantin Kearney PA [facility] [address] PCP - General PHYSICIAN [employer] 03/07/24
--- OUTSIDE RECORDS SUMMARY | 2025-01-10 13:12 | XMS_ITS | Clinical Summary ---
Author Organization [facility] Address [address] [place] [address] Phone Care Team Providers Care Property Investor Name Role Phone Christianne Alex MD Primary Care Provider [phone] Allergies Active Allergy Reactions Criticality Noted Date Comments Metoclopramide Rash Low 04/01/2020 Penicillins Hives High 04/01/2020 Sulfa (Sulfonamide Antibiotics) Hives High 03/13 Medications baclofen (LIORESAL) 10 mg tablet baclofen 10 mg tablet Active ALPRAZolam (XANAX) 0.25 mg tablet TAKE 1 TABLET BY MOUTH THREE TIMES A DAY NEEDED 03/21/2020 Active gabapentin (NEURONTIN) 100 mg capsule TAKE 1 CAPSULE BY MOUTH THREE TIMES A DAY 03/08/2020 Active HYDROcodone-jeremy taminophen (NORCO) 5-325 mg tablet TAKE 1 TABLET BY MOUTH FOUR TIMES A DAY NEEDED 03/08/2020 Active ibuprofen (MOTRIN) 200 mg tablet Take 200 mg by mouth every 6 hours as needed for Pain, Mild. Active acetaminophen (TYLENOL) 325 mg tablet Take 325 mg by mouth every 4 hours as needed. 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 Family History Medical History Relation Name Comments Blood Disorder Maternal Grandmother Heart Failure Maternal Grandmother Relation Name Status Comments Brother Alive Daughter 1 Alive Daughter 2 Alive Daughter 3 Alive Father Alive Maternal Grandmother THROMBO CYPENIA Mother Alive Son 1 Alive Son 2 Alive Social History Tobacco Use Types Packs/Day Years Used Date Smoking Tobacco: Never Smokeless Tobacco: Never Alcohol Use Standard Drinks/Week Comments Yes 0 (1 standard drink = 0.6 oz pur e alcohol) OCCASIONLLY Comments No Sex and Gender Information Value Date Recorded Sex Assigned at Not on file Legal Sex Female 6:10 AM 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 Gender Identity Not on file Sexual Orientation Not on file Last Filed Vital Signs Vital Sign Reading Time Taken Comments Blood Pressure 114/74 04/01/2020 10:17 AM CDT Pulse 99 04/01/2020 10:17 AM CDT Temperature 36.7 C (98.1 F) 05/07/2020 9:40 AM CDT Respiratory Rate - - Oxygen Saturation 98% 04/01/2020 10:17 AM CDT Inhaled Oxygen Concentration - - Weight 50.8 kg (112 lb) 05/07/2020 9:40 AM CDT Height 160 cm (5' 3) 05/07/2020 9:40 AM CDT Body Mass Index 19.84 05/07/2020 9:40 AM CDT Plan of Treatment Health Maintenance Due Date Last Done Comments DTAP/TDAP/TD VACCINES (1 - Tdap) 1999 HEPATITIS B VACCINES (1 of 3 - 19+ 3-dose series) 1999 HPV/Cotest (21-29) 2001 CERVICAL CANCER SCREENING 2010 HPV/Cotest (30-65) 2010 PAP SMEAR 2010 BREAST CANCER SCREENING 2020 INFLUENZA VACCINE (#1) 2024 HPV VACCINES Aged Out No longer eligi ble based on patient's age to complete this topic [place] [id number] Care Teams Property Investor Relationship Specialty Start Date End Date Christianne Alex MD PCP - General Family Practice 04/01/20
== END 2025-01-10 13:07 | disposition home or self-care (01) ==
LOC: ANHAUDASC 13:06
PROVIDERS: PCP Physician Assistant; Visit Provider Otolaryngology
DX: H90.0 Conductive hearing loss, bilateral (principal); Z96.22 Myringotomy tube(s) status; H72.92 Unspecified perforation of tympanic membrane, left ear
CPT/HCPCS: 92557; 92567

== ENCOUNTER 2025-02-05 15:55 | Outpatient (CLI) | payer OTHER, SELFPAY ==
--- NOTE | ~2025-02-05 | MM_ITS ---
EXAMINATION: MM screening anne BI w matilde HISTORY: Screening TECHNIQUE: Craniocaudal and mediolateral oblique 3-D tomosynthesis images were obtained and synthetic 2-D images were generated. CAD analysis was submitted and interpreted. COMPARISON: Comparison to multiple prior studies sequentially, with oldest reviewed study dated 02/2021. BREAST PARENCHYMAL COMPOSITION: Not dense: There are scattered areas of fibroglandular density. FINDINGS: There is no evidence of suspicious mass, calcification, or architectural distortion to sugg est malignancy in either breast. There has been no suspicious interval change. IMPRESSION: 1. No mammographic evidence of malignancy. 2. Recommend routine screening mammography in one year. BI-RADS Category 1: Negative Reviewed, dictated and finalized at location B.
== END 2025-02-05 15:56 | disposition home or self-care (01) ==
LOC: MICIMG 15:55
PROVIDERS: PCP Physician Assistant; Visit Provider Obstetrics & Gynecology
DX: Z12.31 Encounter for screening mammogram for malignant neoplasm of breast (principal)
CPT/HCPCS: 77063; 77067